=== PATIENT | female | born 1980 | race Caucasian/White ===

== ENCOUNTER 2017-08-31 15:40 | Observation (INO) | payer SELFPAY ==
[2017-08-31] MEDS ORDERED: IPRATROPIUM/ALBUTEROL 0.5-2.5 MG/3 ML AMPUL NEB ONE ×2 (16:11→17:58)
[2017-08-31] MEDS ORDERED: LIDOCAINE 1% INJ-PF (10 MG/ML) 30 ML SDV INJ ONE ×2 (16:11→18:57)
[2017-08-31] MEDS ORDERED: PREDNISONE 20 MG TABLET PO ONE (16:11)
--- NOTE | 2017-08-31 16:13 | ER Document Report ---
ED Medical Screen (RME) - General Chief Complaint: Cold Symptoms Stated Complaint: COUGH CONGESTION Time Seen by Provider: 08/31/17 16:07 Notes: 36-year-old female patient smokes one half packs per day has a nebulizer at home using 5 times a day without relief. Cough and congestion for the past 5 days. Reports dark thick green sputum when it does come up. She does have pulse ox 89% recorded at triage. I have greeted and performed a rapid initial assessment of this patient. A comprehensive ED assessment and evaluation of the patient, analysis of test results and completion of the medical decision making process will be conducted by additional ED providers. TRAVEL OUTSIDE OF THE [place] IN LAST 30 DAYS: No - Related Data Allergies/Adverse Reactions: acetaminophen [From Tylenol] Allergy (Verified 08/31/17 16:01) Past Medical History - Social History Chew tobacco use (# tins/day): No Frequency of alcohol use: Occasional Drug Abuse: None Renal/ Medical History: Denies: Hx Peritoneal Dialysis Physical Exam - Vital signs Vitals: Temp Pulse Resp BP Pulse Ox 99.5 F 117 H 30 H 137/82 H 89 L 08/31/17 15:46 08/31/17 15:46 08/31/17 15:46 08/31/17 15:46 08/31/17 15:46 Course - Vital Signs Vital signs: Temp Pulse Resp BP Pulse Ox 99.5 F 117 H 30 H 137/82 H 89 L 08/31/17 15:46 08/31/17 15:46 08/31/17 15:46 08/31/17 15:46 08/31/17 15:46
--- NOTE | 2017-08-31 16:33 | RADIOLOGY REPORT (SQ) ---
EXAM DESCRIPTION: CHEST PA/LAT COMPLETED DATE/TIME: 08/31/2017 4:23 pm REASON FOR STUDY: Wheezing, cough, congestion, short of breath COMPARISON: None. TECHNIQUE: Frontal and lateral radiographic views of the chest acquired. NUMBER OF VIEWS: Two view. LIMITATIONS: None. FINDINGS: LUNGS AND PLEURA: Lateral view shows some increased density over the lower spine. Likely left lower lobe pneumonia. Lungs otherwise relatively clear. MEDIASTINUM AND HILAR STRUCTURES: No masses or contour abnormalities. HEART AND VASCULAR STRUCTURES: Heart normal size. No evidence for failure. BONES: No acute findings. HARDWARE: None in the chest. OTHER: No other significant finding. IMPRESSION: Suspicious for left lower lobe pneumonia. TECHNICAL DOCUMENTATION: JOB ID: [id number] [employer]- All Rights Reserved
[2017-08-31 17:22] LABS: ABSOLUTE BASOPHILS # (AUTO) 0.1 10^3/uL (0.0-0.2); ABSOLUTE EOSINOPHILS # (AUTO) 0.3 10^3/uL (0.0-0.6); ABSOLUTE LYMPHOCYTES (AUTO) 1.7 10^3/uL (0.5-4.7); ABSOLUTE MONOCYTES (AUTO) 0.5 10^3/uL (0.1-1.4); ABSOLUTE NEUT (AUTO) 5.6 10^3/uL (1.7-8.2); BASOPHILS % (AUTO) 0.7 % (0-2); EOSINOPHILS % (AUTO) 3.9 % (0-6); HEMATOCRIT 43.1 % (36.0-47.0); HEMOGLOBIN 14.9 g/dL (12.0-15.5); LYMPHOCYTES % (AUTO) 20.5 % (13-45); MEAN CORPUSCULAR HEMOGLOBIN 32.2 pg (27.0-33.4); MEAN CORPUSCULAR HGB CONC 34.5 g/dL (32.0-36.0); MEAN CORPUSCULAR VOLUME 93 fl (80-97); MONOCYTES % (AUTO) 6.3 % (3-13); PLATELET COUNT 212 10^3/uL (150-450); RED BLOOD COUNT 4.62 10^6/uL (3.72-5.28); RED CELL DISTRIBUTION WIDTH 13.3 % (11.5-14.0); SEGMENTED NEUTROPHILS % (AUTO) 68.6 % (42-78); TOTAL CELLS COUNTED % (AUTO) 100 %; WHITE BLOOD COUNT 8.2 10^3/uL (4.0-10.5)
[2017-08-31 17:40] LABS: ALANINE AMINOTRANSFERASE 26 U/L (9-52); ALBUMIN 4.7 g/dL (3.5-5.0); ALKALINE PHOSPHATASE 69 U/L (38-126); ANION GAP 15 (5-19); ASPARTATE AMINO TRANSFERASE 22 U/L (14-36); BILIRUBIN,DIRECT 0.3 mg/dL (0.0-0.4); BILIRUBIN,TOTAL 0.5 mg/dL (0.2-1.3); BLOOD UREA NITROGEN 9 mg/dL (7-20); CALCIUM 10.1 mg/dL (8.4-10.2); CARBON DIOXIDE 26 mmol/L (22-30); CHLORIDE 104 mmol/L (98-107); GLUCOSE 94 mg/dL (75-110); POTASSIUM 3.9 mmol/L (3.6-5.0); SODIUM 144.9 mmol/L (137-145); TOTAL PROTEIN 7.8 g/dL (6.3-8.2)
[2017-08-31] MEDS ORDERED: CEFTRIAXONE INJ 1000 MG VIAL IM ONE (18:34)
--- NOTE | 2017-08-31 18:40 | ER Document Report ---
ED Respiratory Problem - General Chief Complaint: Cold Symptoms Stated Complaint: COUGH CONGESTION Time Seen by Provider: 08/31/17 16:07 Notes: Patient says that she has had a cough for about 5 days. She is getting up greenish colored phlegm. Patient uses a home nebulizer, although she has never been told that she formally has asthma. She vomited once yesterday and once the day before and has not had any diarrhea. She has been exposed to her 6-year -old who had a high fever and was positive on the strep test. Patient does smoke cigarettes. TRAVEL OUTSIDE OF THE [place] IN LAST 30 DAYS: No - Related Data Allergies/Adverse Reactions: acetaminophen [From Tylenol] Allergy (Verified 08/31/17 16:01) Past Medical History - Social History Smoking Status: Current Every Day Smoker Chew tobacco use (# tins/day): No Frequency of alcohol use: Occasional Drug Abuse: None Family History: Reviewed & Not Pertinent Patient has suicidal ideation: No Patient has homicidal ideation: No - Past Medical History Cardiac Medical History: Denies: Hx Congestive Heart Failure, Hx Hypertension, Hx Pulmonary Embolism Pulmonary Medical History: Reports: Hx Asthma - Never told that she has asthma, but has home nebulizer prescribed Musculoskeltal Medical History: Reports Other - History of TIA. Review of Systems - Review of Systems Notes: REVIEW OF SYSTEMS: CONSTITUTIONAL : Denies fever. EENT: Denies eye, ear, nose or mouth or throat pain or other symptoms. CARDIOVASCULAR: Denies chest pain. RESPIRATORY: See HPI.. GASTROINTESTINAL: Denies abdominal pain but has had some nausea and vomiting, no diarrhea. GENITOURINARY: Denies difficulty or painful urinating, urinary frequency, blood in urine. MUSCULOSKELETAL: Denies back or neck pain. Denies joint pain or swelling. SKIN: Denies rash or skin lesions. NEUROLOGICAL: Denies LOC or altered mental status. Denies headache. Denies sensory loss or motor deficits. ALL OTHER SYSTEMS REVIEWED AND NEGATIVE. Physical Exam - Vital signs Vitals: Temp Pulse Resp BP Pulse Ox 99.5 F 117 H 30 H 137/82 H 89 L 08/31/17 15:46 08/31/17 15:46 08/31/17 15:46 08/31/17 15:46 08/31/17 15:46 Interpretation: Tachycardic - Mild, Hypoxic, Tachypneic - Mild, Febrile - Low- grade - Notes Notes: PHYSICAL EXAMINATION: GENERAL: Well-appearing, in no acute distress. Vital signs show tachypnea, tachycardia, and hypoxia. HEAD: Atraumatic, normocephalic. EYES: Pupils equal round and reactive to light, extraocular movements intact. ENT: oropharynx clear without exudates. Moist mucous membranes. NECK: Normal range of motion, supple. LUNGS: Breath sounds with diffuse expiratory wheezes bilaterally. HEART: Regular rate and rhythm without murmurs. ABDOMEN: Soft, nontender. No guarding or rebound. No masses. BACK: No tenderness throughout entire back. EXTREMITIES: Normal range of motion without pain. NEUROLOGICAL: Normal speech, normal gait. Normal sensory, motor, and reflex exams. Awake, alert, and oriented x3. Cranial nerves normal. PSYCH: Normal mood, normal affect. SKIN: Warm, dry, no rashes. Course - Re-evaluation Re-evalutation: 08/31/17 18:38 Patient says her breathing feels much better since she has had her second nebulizer treatment. However, patient's O2 sat is moving between 88% and 91% on room air. Plan to give the patient Rocephin, 1 g IM, and see if her O2 sat might stabilize above 90 to provide us to send her home. 08/31/17 19:[address] Kelly, hospitalist on duty at this time and he will admit the patient for observation care. - Vital Signs Vital signs: Temp Pulse Resp BP Pulse Ox 99.5 F 117 H 20 137/82 H 91 L 08/31/17 15:46 08/31/17 15:46 08/31/17 19:00 08/31/17 15:46 08/31/17 17:43 - Laboratory Result Diagrams: 08/31/17 16:45 08/31/17 16:45 Discharge - Discharge Clinical Impression: Pneumonia, Bronchospasm, Hypoxia Condition: Stable Disposition: ADMITTED OBSERVATION Admitting Provider: Hospitalist Unit Admitted: Telemetry
[2017-08-31] MEDS ORDERED: HYDRALAZINE HCL INJ/PF 20 MG/1 ML SDV IV PRN (19:35)
[2017-08-31] MEDS ORDERED: GUAIFENESIN SYRP 200 MG/10 ML UDC PO PRN (19:35)
[2017-08-31] MEDS ORDERED: IPRATROPIUM/ALBUTEROL 0.5-2.5 MG/3 ML AMPUL NEB PRN (19:35)
[2017-08-31] MEDS ORDERED: CHLORPHENIRAMINE MALEATE 4 MG TABLET PO ONE (20:30)
[2017-08-31] MEDS ORDERED: LEVOFLOXACIN 750 MG/D5W RTU 750 MG/150 ML RTUPB IV SCH (21:00)
[2017-08-31] MEDS: IPRATROPIUM/ALBUTEROL 0.5-2.5 MG/3 ML AMPUL NEB SCH (21:02)
[2017-08-31] MEDS ORDERED: HEPARIN SOD (PORCINE) 5,000 UNIT/ML 1 ML SYRINGE SUBCUT SCH (22:00)
[2017-08-31] MEDS: GUAIFENESIN 600 MG TABLET.SA PO SCH (23:14)
[2017-08-31] MEDS: HEPARIN SOD (PORCINE) 5,000 UNIT/ML 1 ML SYRINGE SUBCUT SCH (23:15)
[2017-08-31] MEDS: FLUTICASONE NASAL SPRAY 50 MCG/SPRY 120 SPRAY/16 GM NASL SCH (23:15)
[2017-08-31] MEDS ORDERED: INFLUENZA ADLT QUAD (36MOS+) 2017-18 VAC 0.5 ML SYR IM PRN (23:36)
[2017-09-01] MEDS ORDERED: LANSOPRAZOLE 30 MG TAB.RAP.DR PO ONE (01:00)
--- NOTE | 2017-09-01 01:00 | PDOC H&P ---
History of Present Illness Admission Date/PCP: 08/31/17 19:42 Patient complains of: Shortness of breath and cough History of Present Illness: JAYDEN SIMMONS is a 36 year old female with a past medical history of Tobacco Dependence. Who presents with 5 or 6 days of shortness of breath, productive cough and left-sided pleuritic chest pain. She denies previous episode she admits exposure to her son with strep throat who symptoms began yesterday. Her symptoms have been unresponsive to multiple okej-[id number]-umcxare preparations. She complains of exceptionally poor controlled acid reflux with constant symptoms predating respiratory complaints by several weeks. In the emergency room she is found to have rhonchi and rales with a left lower lobe infiltrate. She started on empiric antibiotics and referred to the hospitalist for admission. She denies recent antibiotic use Past Medical History Cardiac Medical History: Denies: Congestive Heart Failure, Hypertension, Pulmonary Embolism Pulmonary Medical History: Reports: Bronchitis, Chronic Obstructive Pulmonary Disease (COPD) Neurological Medical History: Reports: Seizures - Pt. did not fully know what type or anything. Musculoskeltal Medical History: Reports: Other - History of TIA. Psychiatric Medical History: Reports: Tobacco Dependency Social History Information Source: Patient Lives with: Family Smoking Status: Current Every Day Smoker Drugs: None - Advance Directive Resuscitation Status: Full Code Family History Family History: COPD Parental Family History Reviewed: Yes Children Family History Reviewed: Yes Sibling(s) Family History Reviewed.: Yes Medication/Allergy Home Medications: No Home Medications 08/31/17 Allergies/Adverse Reactions: acetaminophen [From Tylenol] Allergy (Verified 08/31/17 16:01) Review of Systems Constitutional: ABSENT: chills, fever(s), headache(s), weight gain, weight loss Eyes: ABSENT: visual disturbances Ears: ABSENT: hearing changes Cardiovascular: ABSENT: chest pain, dyspnea on exertion, edema, orthropnea, palpitations Respiratory: ABSENT: cough, hemoptysis Gastrointestinal: ABSENT: abdominal pain, constipation, diarrhea, hematemesis, hematochezia, nausea, vomiting Genitourinary: ABSENT: dysuria, hematuria Musculoskeletal: ABSENT: joint swelling Integumentary: ABSENT: rash, wounds Neurological: ABSENT: abnormal gait, abnormal speech, confusion, dizziness, focal weakness, syncope Psychiatric: ABSENT: anxiety, depression, homidical ideation, suicidal ideation Endocrine: ABSENT: cold intolerance, heat intolerance, polydipsia, polyuria Hematologic/Lymphatic: ABSENT: easy bleeding, easy bruising Physical Exam Vital Signs: Temp Pulse Resp BP Pulse Ox 98.5 F 106 H 16 133/60 H 92 08/31/17 23:19 08/31/17 23:19 08/31/17 23:19 08/31/17 23:19 09/01/17 00:00 Intake & Output 08/30/17 08/31/17 09/01/17 11:59 11:59 11:59 Intake Total 120 Output Total 200 Balance -80 Weight 105.5 kg General appearance: PRESENT: cooperative, mild distress, other - Fatigue and toxic appearing Head exam: PRESENT: atraumatic, normocephalic Eye exam: PRESENT: conjunctival injection, conjunctiva pink, EOMI, PERRLA. ABSENT: scleral icterus Ear exam: PRESENT: normal external ear exam Mouth exam: PRESENT: moist, tongue midline Neck exam: ABSENT: carotid bruit, JVD, lymphadenopathy, thyromegaly Respiratory exam: PRESENT: accessory muscle use, crackles, decreased breath sounds, rales, rhonchi, tachypnea Cardiovascular exam: PRESENT: RRR. ABSENT: diastolic murmur, rubs, systolic murmur Pulses: PRESENT: normal dorsalis pedis pul Vascular exam: PRESENT: normal capillary refill GI/Abdominal exam: PRESENT: normal bowel sounds, soft. ABSENT: distended, guarding, mass, organolmegaly, rebound, tenderness Rectal exam: PRESENT: deferred Extremities exam: PRESENT: full ROM. ABSENT: calf tenderness, clubbing, pedal edema Neurological exam: PRESENT: alert, awake, oriented to person, oriented to place , oriented to time, oriented to situation, CN II-XII grossly intact. ABSENT: motor sensory deficit Psychiatric exam: PRESENT: appropriate affect, normal mood. ABSENT: homicidal ideation, suicidal ideation Skin exam: PRESENT: dry, intact, warm. ABSENT: cyanosis, rash Results Impressions: Chest X-Ray 08/31/17 16:11 IMPRESSION: Suspicious for left lower lobe pneumonia. Assessment & Plan - Diagnosis (1) Pneumonia Is this a current diagnosis for this admission?: Yes Plan: Given severely uncontrolled GERD and infiltrate in the right lower lobe concerning for aspiration. Empiric antibiotics initiated, albuterol and Atrovent with incentive spirometry. Follow-up blood culture and CBC (2) Hypoxia Is this a current diagnosis for this admission?: Yes Plan: Supplemental oxygen and BiPAP as needed (3) COPD exacerbation Is this a current diagnosis for this admission?: Yes Plan: Albuterol and Atrovent, prednisone, flutter valve and education (4) Tobacco dependency Is this a current diagnosis for this admission?: Yes Plan: Tobacco Dependence patient received tobacco cessation counseling and offered nicotine replacement options (5) GERD (gastroesophageal reflux disease) Is this a current diagnosis for this admission?: Yes Plan: Prevacid twice daily and education
[2017-09-01] MEDS: IPRATROPIUM/ALBUTEROL 0.5-2.5 MG/3 ML AMPUL NEB SCH ×3 (01:34→14:06)
[2017-09-01] MEDS ORDERED: KETOROLAC TROMETHAMINE INJ/PF 30 MG/1 ML SDV IV ONE (02:45)
[2017-09-01 04:12] VITALS: BP 134/64
[2017-09-01] MEDS: LANSOPRAZOLE 30 MG TAB.RAP.DR PO SCH ×2 (06:02→17:25)
[2017-09-01] MEDS: HEPARIN SOD (PORCINE) 5,000 UNIT/ML 1 ML SYRINGE SUBCUT SCH (06:02)
[2017-09-01 08:06] LABS: ABSOLUTE LYMPHOCYTES (AUTO) 1.7 10^3/uL (0.5-4.7); ABSOLUTE MONOCYTES (AUTO) 0.5 10^3/uL (0.1-1.4); ABSOLUTE NEUT (AUTO) 5.2 10^3/uL (1.7-8.2); BASOPHILS % (AUTO) 0.3 % (0-2); EOSINOPHILS % (AUTO) 0.2 % (0-6); HEMATOCRIT 39.3 % (36.0-47.0); HEMOGLOBIN 13.3 g/dL (12.0-15.5); LYMPHOCYTES % (AUTO) 23.1 % (13-45); MEAN CORPUSCULAR HEMOGLOBIN 31.7 pg (27.0-33.4); MEAN CORPUSCULAR HGB CONC 33.9 g/dL (32.0-36.0); MEAN CORPUSCULAR VOLUME 94 fl (80-97); MONOCYTES % (AUTO) 6.1 % (3-13); PLATELET COUNT 197 10^3/uL (150-450); RED CELL DISTRIBUTION WIDTH 13.3 % (11.5-14.0); SEGMENTED NEUTROPHILS % (AUTO) 70.3 % (42-78); TOTAL CELLS COUNTED % (AUTO) 100 %; WHITE BLOOD COUNT 7.4 10^3/uL (4.0-10.5)
[2017-09-01 08:41] LABS: ANION GAP 13 (5-19); BLOOD UREA NITROGEN 14 mg/dL (7-20); CALCIUM 9.9 mg/dL (8.4-10.2); CARBON DIOXIDE 23 mmol/L (22-30); CHLORIDE 106 mmol/L (98-107); GLUCOSE 100 mg/dL (75-110); POTASSIUM 4.4 mmol/L (3.6-5.0); SODIUM 141.5 mmol/L (137-145)
[2017-09-01] MEDS: GUAIFENESIN 600 MG TABLET.SA PO SCH (09:09)
[2017-09-01] MEDS: FLUTICASONE NASAL SPRAY 50 MCG/SPRY 120 SPRAY/16 GM NASL SCH (09:10)
[2017-09-01] MEDS ORDERED: NICOTINE 14 MG/24 HR PATCH.TD24 TD PRN (13:02)
[2017-09-01] MEDS ORDERED: ALPRAZOLAM 0.25 MG TABLET PO ONE (14:00)
--- NOTE | 2017-09-01 17:10 | PDOC DISCHARGE SUMMARY ---
General - Admit/Disc Date/PCP Admission Date/Primary Care Provider: 08/31/17 19:42 No PCP, patient to establish care as outpatient and see physicician in 1 week Discharge Date: 09/01/17 - Discharge Diagnosis (1) Acute bronchitis Is this a current diagnosis for this admission?: Yes (2) Anxiety Is this a current diagnosis for this admission?: Yes (3) Bronchospasm Is this a current diagnosis for this admission?: Yes (4) COPD exacerbation Is this a current diagnosis for this admission?: Yes (5) Hypoxia Is this a current diagnosis for this admission?: Yes (6) Tobacco dependency Is this a current diagnosis for this admission?: Yes - Additional Information Resuscitation Status: Full Code Prescriptions: Albuterol Sulfate [Ventolin Hfa] 1 - 2 puff IH Q4 PRN #1 hfa.aer.ad PRN Reason: Alprazolam [Xanax 0.25 mg Tablet] 0.25 mg PO TIDP PRN #30 tab PRN Reason: Doxycycline Hyclate 100 mg PO Q12H 5 Days #11 capsule Nicotine [Nicoderm 14 mg/24 Hr Transdermal Patch] 1 each TD DAILYP PRN 90 Days # 90 patch.td24 PRN Reason: Omeprazole Magnesium [Prilosec Otc] 20 mg PO DAILY 30 Days #30 tablet. Prednisone [Deltasone 20 mg Tablet] 40 mg PO DAILY #7 tablet Home Medications: Albuterol Sulfate [Ventolin Hfa] 1 - 2 puff IH Q4 PRN #1 hfa.aer.ad 09/01/17 Alprazolam [Xanax 0.25 mg Tablet] 0.25 mg PO TIDP PRN #30 tab 09/01/17 Doxycycline Hyclate 100 mg PO Q12H 5 Days #11 capsule 09/01/17 Guaifenesin [Mucinex Sr 600 mg Tablet.sa] 1,200 mg PO Q12 tablet.sa 09/01/17 Guaifenesin [Robitussin Syrup 200 mg/10 ml Ud Cup] 200 mg PO Q4HP PRN udc 09/01 Ipratropium/Albuterol Sulfate [Duoneb 3 ml Ampul] 3 ml NEB RTQ6 vial.neb Nicotine [Nicoderm 14 mg/24 Hr Transdermal Patch] 1 each TD DAILYP PRN 90 Days # 90 patch.td24 09/01/17 Omeprazole Magnesium [Prilosec Otc] 20 mg PO DAILY 30 Days #30 tablet. Prednisone [Deltasone 20 mg Tablet] 40 mg PO DAILY #7 tablet 09/01/17 History of Present Illness History of Present Illness: JAYDEN SIMMONS is a 36 year old female with tobacco Dependence and anxiety. She presented to the ER with 5 or 6 days of shortness of breath, productive cough and left-sided pleuritic chest pain. She denied previous episode she admits exposure to her son with strep throat who symptoms began yesterday. Her symptoms had been unresponsive to multiple dcns-rdx-fianiky preparations. She complained of exceptionally poor controlled acid reflux with constant symptoms predating respiratory complaints by several weeks. In the emergency room she is found to have rhonchi and rales with a left lower lobe infiltrate. She started on empiric antibiotics and supplemental oxygen and nebulizer treatments. When I saw her later that day she had a lot of anxiety which improved with Xanax. She has had anxiety for a long time. She also got a nicotine patch and was started on steroids. We ambulated her on room air down the hallway and her sats remained in the 90s. Patient was eager to go home due to 3 young children with no one to care for them. She was discharged. She does not have a primary care physician and is to establish care at the [facility] [place]. She was given prescriptions for Xanax to 5 mg 30 tablets, doxycycline, prednisone, albuterol mdi and nicotine patch Hospital Course Hospital Course: See above Physical Exam Vital Signs: Temp Pulse Resp BP Pulse Ox 98.3 F 87 18 134/64 H 94 09/01/17 04:00 09/01/17 14:06 09/01/17 14:06 09/01/17 04:00 09/01/17 04:00 Intake & Output 08/31/17 09/01/17 09/02/17 06:59 06:59 06:59 Intake Total 270 591 Output Total 200 Balance 70 591 Weight 105.5 kg General appearance: PRESENT: no acute distress Neck exam: ABSENT: tracheal deviation Respiratory exam: PRESENT: prolonged expiratory phas, other - coarse Breath sounds bilateral. ABSENT: crackles Cardiovascular exam: PRESENT: RRR Extremities exam: ABSENT: pedal edema Results Laboratory Results: 09/01/17 06:25 09/01/17 06:25 09/01/17 09/01/17 06:25 06:25 WBC 7.4 RBC 4.20 Hgb 13.3 Hct 39.3 MCV 94 MCH 31.7 MCHC 33.9 RDW 13.3 Plt Count 197 Seg Neutrophils % 70.3 Lymphocytes % 23.1 Monocytes % 6.1 Eosinophils % 0.2 Basophils % 0.3 Absolute Neutrophils 5.2 Absolute Lymphocytes 1.7 Absolute Monocytes 0.5 Absolute Eosinophils 0.0 Absolute Basophils 0.0 Sodium 141.5 Potassium 4.4 Chloride 106 Carbon Dioxide 23 Anion Gap 13 BUN 14 Creatinine 0.73 Est GFR ( Amer) > 60 Est GFR (Non-Af Amer) > 60 Glucose 100 Calcium 9.9 Impressions: Chest X-Ray 08/31/17 16:11 IMPRESSION: Suspicious for left lower lobe pneumonia. Qualifiers - * PATEINT BEING DISCHARGED WITH ANY OF THE FOLLOWING DIAGNOSIS?: No Plan Time Spent: Less than 30 Minutes
[2017-09-01] MEDS ORDERED: METHYLPREDNISOLONE INJ 125 MG/2 ML SDV IV ONE (17:45)
== END 2017-09-01 18:15 | disposition home or self-care (01) ==
LOC: ER 15:40 → EH 19:42 → 5 21:43
PROVIDERS: ADMIT Internal Medicine; ATTEND Internal Medicine
DX: J44.0 Chronic obstructive pulmonary disease with (acute) lower respiratory infection (principal); J20.9 Acute bronchitis, unspecified; J44.1 Chronic obstructive pulmonary disease with (acute) exacerbation; R09.02 Hypoxemia; F41.9 Anxiety disorder, unspecified; F17.210 Nicotine dependence, cigarettes, uncomplicated; K21.9 Gastro-esophageal reflux disease without esophagitis; Z20.828 Contact with and (suspected) exposure to other viral communicable diseases; Z86.73 Personal history of transient ischemic attack (TIA), and cerebral infarction without residual deficits; Z82.5 Family history of asthma and other chronic lower respiratory diseases
CPT/HCPCS: 94640 ×5; 99284; 96372; 96365; 36415 ×2; 87070; 87205; 85025 ×2; 80048; 80053; 71046; 94799 ×2; 94660; 94667; G0378 ×3; J1644; J3490 ×2; J2930; J1885; J7512; J0696; J1956; J7620 ×2

== ENCOUNTER 2017-09-30 09:55 | Emergency (ER) | payer SELFPAY ==
--- NOTE | 2017-09-30 10:16 | ER Document Report ---
ED Medical Screen (RME) - General Chief Complaint: Weakness Stated Complaint: COUGH Time Seen by Provider: 09/30/17 10:10 Mode of Arrival: Ambulatory Information source: Patient Notes: 37-year-old woman who was referred from the [facility] for left- sided pain numbness, weakness. Patient also states she had a facial droop. Her symptoms all began yesterday at about 7 PM. She does state she was having pain and numbness for the past 3 days, but started having weakness that she noticed at about 7 PM yesterday. The patient is a 1-1/2 pack per day smoker and she does have a history of TIA in the past. TRAVEL OUTSIDE OF THE [place] IN LAST 30 DAYS: No - Related Data Allergies/Adverse Reactions: acetaminophen [From Tylenol] Allergy (Verified 09/30/17 09:56) Past Medical History - Past Medical History Cardiac Medical History: Denies: Hx Congestive Heart Failure, Hx Hypertension, Hx Pulmonary Embolism Pulmonary Medical History: Reports: Hx Asthma - Not ever told that, Hx Bronchitis, Hx COPD Neurological Medical History: Reports: Hx Seizures - Pt. did not fully know what type or anything. Renal/ Medical History: Denies: Hx Peritoneal Dialysis - Immunizations History of Influenza Vaccine for 05/2017 - 10/2017 Season: No Physical Exam - Vital signs Vitals: Temp Pulse Resp BP Pulse Ox 98.0 F 78 18 110/77 97 09/30/17 10:09/30/17 10:09/30/17 10:09/30/17 10:09/30/17 10:09 Course - Vital Signs Vital signs: Temp Pulse Resp BP Pulse Ox 98.0 F 78 18 110/77 97 09/30/17 10:09/30/17 10:09/30/17 10:09/30/17 10:09/30/17 10:09
--- NOTE | 2017-09-30 10:43 | RADIOLOGY REPORT (SQ) ---
EXAM DESCRIPTION: CHEST PA/LAT COMPLETED DATE/TIME: 09/30/2017 10:32 am REASON FOR STUDY: left weak COMPARISON: 08/31/2017 EXAM PARAMETERS: NUMBER OF VIEWS: two views TECHNIQUE: Digital Frontal and Lateral radiographic views of the chest acquired. RADIATION DOSE: NA LIMITATIONS: none FINDINGS: LUNGS AND PLEURA: No opacities, masses or pneumothorax. No pleural effusion. MEDIASTINUM AND HILAR STRUCTURES: No masses or contour abnormalities. HEART AND VASCULAR STRUCTURES: Heart normal size. No evidence for failure. BONES: No acute findings. HARDWARE: None in the chest. OTHER: No other significant finding. IMPRESSION: NO SIGNIFICANT RADIOGRAPHIC FINDING IN THE CHEST. TECHNICAL DOCUMENTATION: JOB ID: [id number] [employer]- All Rights Reserved
--- NOTE | 2017-09-30 10:51 | RADIOLOGY REPORT (SQ) ---
EXAM DESCRIPTION: CT HEAD WITHOUT COMPLETED DATE/TIME: 09/30/2017 10:42 am REASON FOR STUDY: left weak COMPARISON: None. TECHNIQUE: Axial images acquired through the brain without intravenous contrast. Images reviewed wi th bone, brain and subdural windows. Images stored on PACS. All CT scanners at this facility use dose modulation, iterative reconstruction, and/or weight based d osing when appropriate to reduce radiation dose to as low as reasonably achievable (ALARA). [facility]: Dose Right [facility]: CareDose [facility]: Dose Right [facility]: Teradose 4D [facility]: [email or web address] RADIATION DOSE: 64.61 mGy. LIMITATIONS: None. FINDINGS: VENTRICLES: Normal size and contour. CEREBRUM: No masses. No hemorrhage. No midline shift. No evidence for acute infarction. Normal gra y/white matter differentiation. No areas of low density in the white matter. CEREBELLUM: No masses. No hemorrhage. No alteration of density. No evidence for acute infarction. EXTRAAXIAL SPACES: No fluid collections. No masses. ORBITS AND GLOBE: No intra- or extraconal masses. Normal contour of globe without masses. CALVARIUM: No fracture. PARANASAL SINUSES: No fluid or mucosal thickening. SOFT TISSUES: No mass or hematoma. OTHER: No other significant finding. IMPRESSION: NORMAL BRAIN CT WITHOUT CONTRAST. EVIDENCE OF ACUTE STROKE: NO. COMMENT: Quality ID # [id number]: Final reports with documentation of one or more dose reduction techniques (e.g., Automated exposure control, adjustment of the mA and/or kV according to patient size, use of iterative reconstruction technique) TECHNICAL DOCUMENTATION: JOB ID: [id number] [employer]- All Rights Reserved
--- NOTE | 2017-09-30 10:59 | EKG REPORT ---
SEVERITY:- NORMAL ECG - SINUS RHYTHM : Confirmed by: Clau Major 30-Sep-2017 10:58:24
[2017-09-30 11:40] LABS: ABSOLUTE EOSINOPHILS # (AUTO) 0.2 10^3/uL (0.0-0.6); ABSOLUTE LYMPHOCYTES (AUTO) 2.2 10^3/uL (0.5-4.7); ABSOLUTE MONOCYTES (AUTO) 0.3 10^3/uL (0.1-1.4); ABSOLUTE NEUT (AUTO) 3.6 10^3/uL (1.7-8.2); BASOPHILS % (AUTO) 0.7 % (0-2); HEMATOCRIT 44.1 % (36.0-47.0); HEMOGLOBIN 15.3 g/dL (12.0-15.5); LYMPHOCYTES % (AUTO) 34.5 % (13-45); MEAN CORPUSCULAR HEMOGLOBIN 32.2 pg (27.0-33.4); MEAN CORPUSCULAR HGB CONC 34.7 g/dL (32.0-36.0); MEAN CORPUSCULAR VOLUME 93 fl (80-97); MONOCYTES % (AUTO) 4.9 % (3-13); PLATELET COUNT 194 10^3/uL (150-450); RED BLOOD COUNT 4.76 10^6/uL (3.72-5.28); RED CELL DISTRIBUTION WIDTH 13.4 % (11.5-14.0); SEGMENTED NEUTROPHILS % (AUTO) 56.9 % (42-78); TOTAL CELLS COUNTED % (AUTO) 100 %; WHITE BLOOD COUNT 6.4 10^3/uL (4.0-10.5)
[2017-09-30 11:47] LABS: APPEARANCE,URINE CLEAR; BILIRUBIN,URINE NEGATIVE (NEGATIVE); COLOR,URINE STRAW; GLUCOSE, URINE NEGATIVE (NEGATIVE); KETONES,URINE NEGATIVE (NEGATIVE); LEUKOCYTE ESTERASE,URINE NEGATIVE (NEGATIVE); NITRITE,URINE NEGATIVE (NEGATIVE); PROTEIN,URINE NEGATIVE (NEGATIVE); URINE SPECIFIC GRAVITY 1.006; UROBILINOGEN,URINE NEGATIVE mg/dL (<2.0)
[2017-09-30 11:49] LABS: INTERNATIONAL RATION (INR) 0.92
[2017-09-30 12:04] LABS: ALANINE AMINOTRANSFERASE 25 U/L (9-52); ALBUMIN 4.7 g/dL (3.5-5.0); ALKALINE PHOSPHATASE 64 U/L (38-126); ANION GAP 11 (5-19); ASPARTATE AMINO TRANSFERASE 16 U/L (14-36); BILIRUBIN,DIRECT 0.2 mg/dL (0.0-0.4); BILIRUBIN,TOTAL 0.4 mg/dL (0.2-1.3); BLOOD UREA NITROGEN 8 mg/dL (7-20); CALCIUM 10.1 mg/dL (8.4-10.2); CARBON DIOXIDE 23 mmol/L (22-30); CHLORIDE 108 mmol/L (98-107); GLUCOSE 86 mg/dL (75-110); POTASSIUM 4.3 mmol/L (3.6-5.0); TOTAL PROTEIN 7.3 g/dL (6.3-8.2)
--- NOTE | 2017-09-30 12:37 | ER Document Report ---
ED Dizziness/Weakness - General Chief Complaint: Weakness Stated Complaint: COUGH Time Seen by Provider: 09/30/17 10:10 Mode of Arrival: Ambulatory Information source: Patient Notes: Patient is a 37-year-old female who presents to the ER today for 3 days of numbness to both hands that worsened last night with some numbness and tingling with associated pain radiating from her left hand up her left arm and then shooting down her left side of her body to her left leg. Patient denies any facial droop, headache, blurred vision. She has a history of a TIA 4 years ago that she was admitted for but no stroke. She denies any hypertension, diabetes , high cholesterol, history of heart attack. She states strokes run in her family as well as multiple sclerosis. She has never been evaluated for multiple sclerosis by doctor. She states "I have all the signs of MS." she denies any loss of bladder or bowel function. TRAVEL OUTSIDE OF THE [place] IN LAST 30 DAYS: No - Related Data Allergies/Adverse Reactions: acetaminophen [From Tylenol] Allergy (Verified 09/30/17 09:56) Past Medical History - General Information source: Patient - Social History Smoking Status: Current Every Day Smoker Chew tobacco use (# tins/day): No Frequency of alcohol use: None Drug Abuse: None Family History: COPD Patient has suicidal ideation: No Patient has homicidal ideation: No - Past Medical History Cardiac Medical History: Denies: Hx Congestive Heart Failure, Hx Hypertension, Hx Pulmonary Embolism Pulmonary Medical History: Reports: Hx Asthma - Not ever told that, Hx Bronchitis, Hx COPD Neurological Medical History: Reports: Hx Seizures - Pt. did not fully know what type or anything. Renal/ Medical History: Denies: Hx Peritoneal Dialysis Review of Systems - Review of Systems Constitutional: No symptoms reported EENT: No symptoms reported Cardiovascular: No symptoms reported Respiratory: No symptoms reported Gastrointestinal: No symptoms reported Genitourinary: No symptoms reported Female Genitourinary: No symptoms reported Musculoskeletal: No symptoms reported Skin: No symptoms reported Hematologic/Lymphatic: No symptoms reported Neurological/Psychological: See HPI Physical Exam - Vital signs Vitals: Temp Pulse Resp BP Pulse Ox 98.0 F 78 18 110/77 97 09/30/17 10:09/30/17 10:09/30/17 10:09/30/17 10:09/30/17 10:09 - Notes Notes: PHYSICAL EXAMINATION: GENERAL: Well-appearing and in no acute distress. HEAD: Atraumatic, normocephalic. EYES: Pupils equal round and reactive to light, extraocular movements intact, sclera anicteric, conjunctiva are normal. ENT: ear canals without erythema or foreign body, TMs pearly pollock with good bony landmarks, nares patent, oropharynx clear without exudates. Moist mucous membranes. NECK: Normal range of motion, supple without lymphadenopathy LUNGS: CTAB and equal. No wheezes rales or rhonchi. HEART: Regular rate and rhythm without murmurs ABDOMEN: Soft, no tenderness. No guarding, no rebound BACK: no vertebral tenderness, normal ROM GI/: no CVA tenderness EXTREMITIES: Normal range of motion, no pitting edema. No cyanosis. NEUROLOGICAL: Cranial nerves grossly intact. Normal sensory/motor exams. Good and equal strength bilaterally, Kernig and Brudzinski's signs negative, Romberg' s test normal, normal heel to hogue testing PSYCH: Normal mood, normal affect. SKIN: Warm, Dry, normal turgor, no rashes or lesions noted Course - Re-evaluation Re-evalutation: 09/30/17 12:41 Lab work is unremarkable including a normal CAT scan of the head and chest x- ray. Patient was recently admitted for pneumonia last month and she was very concerned that she may have pneumonia still although she states her symptoms are improved. This was ordered in triage. She did not mention any of this to me. Patient cardiac enzymes are normal, EKG reports a normal sinus rhythm without evidence of ischemia or abnormality. I do not believe patient is having a TIA today as she has a normal neurological exam and has had bilateral symptoms. Patient will be given a neurologist to follow-up with for possible MS testing that is not emergent today. - Vital Signs Vital signs: Temp Pulse Resp BP Pulse Ox 98.0 F 78 18 110/77 97 09/30/17 10:09 09/30/17 10:09 09/30/17 10:09 09/30/17 10:09/30/17 10:09 - Laboratory Result Diagrams: 09/30/17 11:17 09/30/17 11:17 Laboratory results interpreted by me: 09/30/17 11:17 Chloride 108 H Discharge - Discharge Clinical Impression: Numbness and tingling in both hands, Numbness and tingling of left leg Condition: Stable Disposition: HOME, SELF-CARE Additional Instructions: Return immediately for any new or worsening symptoms. Follow up with primary care provider, call tomorrow to make followup appointment. Referrals: EYAL WILSON MD [ACTIVE STAFF] - Follow up as needed
[2017-09-30] MEDS ORDERED: HYDROXYZINE PAMOATE 25 MG CAPSULE (4 CAP/ER DISP) PO PRN (12:45)
[2017-09-30 13:20] VITALS: BP 102/76
== END 2017-09-30 13:16 | disposition home or self-care (01) ==
LOC: ER 09:55
DX: R20.0 Anesthesia of skin (principal); M79.642 Pain in left hand; M79.602 Pain in left arm; M79.605 Pain in left leg; R53.1 Weakness; R05 Cough; F17.200 Nicotine dependence, unspecified, uncomplicated
CPT/HCPCS: 93005; 99285; 36415; 84702; 85025; 85610; 80053; 81001; 71046; 70450; 93010; J3490

== ENCOUNTER → 2017-12-01 | Outpatient (CLI) | payer MEDICAID ==
--- NOTE | 2017-12-01 13:53 | RADIOLOGY REPORT (SQ) ---
EXAM DESCRIPTION: CHEST 2 VIEWS COMPLETED DATE/TIME: 12/01/2017 1:32 pm REASON FOR STUDY: MILD INTERMITTENT ASTHMA WITH (ACUTE) EXACERBATION (J45.21) COMPARISON: 09/30/2017. EXAM PARAMETERS: NUMBER OF VIEWS: two views TECHNIQUE: Digital Frontal and Lateral radiographic views of the chest acquired. RADIATION DOSE: NA LIMITATIONS: none FINDINGS: LUNGS AND PLEURA: No opacities, masses or pneumothorax. No pleural effusion. MEDIASTINUM AND HILAR STRUCTURES: No masses or contour abnormalities. HEART AND VASCULAR STRUCTURES: Heart normal size. No evidence for failure. BONES: No acute findings. HARDWARE: None in the chest. OTHER: No other significant finding. IMPRESSION: NO ACUTE RADIOGRAPHIC FINDING IN THE CHEST. TECHNICAL DOCUMENTATION: JOB ID: [id number] [employer]- All Rights Reserved Reading location - IP/workstation name: [email or web address]
--- NOTE | 2017-12-01 13:53 | RADIOLOGY REPORT (SQ) ---
EXAM DESCRIPTION: CERV SP 4 OR 5 VIEWS COMPLETED DATE/TIME: 12/01/2017 1:32 pm REASON FOR STUDY: NECK PAIN (M54.2) J45.21 MILD INTERMITTENT ASTHMA WITH (ACUTE) EXACERBATION M54.2 CERVICALGIA COMPARISON: None. NUMBER OF VIEWS: Five views. TECHNIQUE: AP, lateral, obliques and odontoid radiographic images acquired of the cervical spine. LIMITATIONS: None. FINDINGS: MINERALIZATION: Normal. ALIGNMENT: Anatomic. VERTEBRAE: Vertebral bodies of normal height. DISCS: No significant osteophytes or sclerosis. Disc height maintained. FORAMINA: No osteophytes or foraminal narrowing. LATERAL AND POSTERIOR ELEMENTS: Facets, lateral masses and spinous processes without significant find ings. HARDWARE: None in the spine. SOFT TISSUES: No masses or calcifications. Lung apices clear. OTHER: No other significant finding. IMPRESSION: NO SIGNIFICANT RADIOGRAPHIC FINDING IN THE CERVICAL SPINE. TECHNICAL DOCUMENTATION: JOB ID: [id number] [employer]- All Rights Reserved Reading location - IP/workstation name: [email or web address]
== END ==
LOC: RAD 12:53
PROVIDERS: ATTEND Physician Assistant
DX: J45.21 Mild intermittent asthma with (acute) exacerbation (principal); M54.2 Cervicalgia
CPT/HCPCS: 71046; 72050

== ENCOUNTER 2017-12-20 09:10 | Day surgery (SDC) | payer MEDICAID ==
[~2017-12-20 09:10] MED LIST: DIPHENHYDRAMINE HCL 50 MG/ML VIAL ONE; EPINEPHRINE INJ 1 MG/10 ML DISP.SYRIN ONE; FLUMAZENIL INJ 0.5 MG/5 ML VIAL ONE; GLUCAGON,HUMAN RECOMB 1 MG INJ ONE; MIDAZOLAM 2 MG/2 ML INJ ONE; NALOXONE HCL INJ/PF 0.4 MG/1 ML SDV ONE; ONDANSETRON HCL INJ/PF 4 MG/2 ML SDV ONE
[2017-12-20] MEDS: MIDAZOLAM 2 MG/2 ML INJ ONE ×2 (09:30→09:37)
[2017-12-20] MEDS: FENTANYL CITRATE INJ/PF 100 MCG/2 ML AMPUL ONE ×2 (09:32→09:35)
[2017-12-20] MEDS ORDERED: PROPOFOL INJ 200 MG/20 ML VIAL IV ONE (11:21)
--- NOTE | 2017-12-20 11:50 | Operative Report ---
Operative Report DATE OF SURGERY: 12/20/17 Operative Report: The risks benefits and alternatives of the procedure explained to the patient in detail and informed consent is obtained.A GIF Olympus video scope was inserted into the patient's mouth and hypopharynx, the esophagus is identified intubated and insufflated, the scope was then advanced through the esophagus stomach and duodenum, retroflexion maneuver is done, the esophagus stomach and first and second portions of the duodenum examined PREOPERATIVE DIAGNOSIS: Dysphagia POSTOPERATIVE DIAGNOSIS: Schatzki's ring status post breakage. Sliding hiatal hernia. Gastritis status post biopsy. Duodenitis OPERATION: EGD with biopsy SURGEON: MARCI DYER ANESTHESIA: Moderate Sedation - Initial attempt at conscious sedation was unsuccessful. Patient was provided with 4 mg of Versed and 1000 mcg of fentanyl. She proceeded with propofol sedation. TISSUE REMOVED OR ALTERED: As noted above. COMPLICATIONS: None. ESTIMATED BLOOD LOSS: None. INTRAOPERATIVE FINDINGS: As noted above. PROCEDURE: Patient tolerated the procedure well. No immediate postprocedure complications are noted. Patient discharged in good condition. Discharge date 12/20/2017. Discharge diet: Regular. Discharge activity: Regular. 2-3 week follow-up to discuss findings. Patient is instructed to call the office or proceed to the emergency room should there be any further problems or questions.
[2017-12-20 12:46] VITALS: BP 96/65
== END 2017-12-20 12:50 | disposition home or self-care (01) ==
LOC: END 09:10
PROVIDERS: ATTEND Internal Medicine Gastroenterology
DX: K22.2 Esophageal obstruction (principal); K29.50 Unspecified chronic gastritis without bleeding; K29.80 Duodenitis without bleeding; K21.9 Gastro-esophageal reflux disease without esophagitis; J45.909 Unspecified asthma, uncomplicated; F17.210 Nicotine dependence, cigarettes, uncomplicated; Z79.51 Long term (current) use of inhaled steroids; Z79.899 Other long term (current) drug therapy; Z86.73 Personal history of transient ischemic attack (TIA), and cerebral infarction without residual deficits
CPT/HCPCS: 43239; 88305 ×2; J2250; J3010; J2704; 731; J0171; J1200; J1610; J2310; J2405; J3490

== ENCOUNTER 2017-12-21 19:00 | Emergency (ER) | payer MEDICAID ==
[2017-12-21] MEDS ORDERED: METOCLOPRAMIDE HCL ORAL SOLN 10 MG/10 ML UDCUP PO ONE (19:42)
[2017-12-21] MEDS ORDERED: LIDOCAINE 2% VISCOUS SOLN 20 ML UDCUP PO ONE ×2 (19:42→21:53)
[2017-12-21] MEDS ORDERED: MAG HYDROX/AL HYDROX/SIMETH SUSP 30 ML UDCUP PO ONE ×2 (19:42→21:53)
--- NOTE | 2017-12-21 19:43 | ER Document Report ---
ED Medical Screen (RME) - General Chief Complaint: Shortness Of Breath Stated Complaint: DIFFICULTY BREATHING Time Seen by Provider: 12/21/17 19:42 TRAVEL OUTSIDE OF THE [place] IN LAST 30 DAYS: No - HPI Notes: 12/21/17 19:43 Chest pain abdominal pain after having upper GI scope yesterday. Upper GI performed by Dr. Bravo - Related Data Allergies/Adverse Reactions: acetaminophen [From Tylenol] Allergy (Verified 12/20/17 09:11) Past Medical History - Social History Chew tobacco use (# tins/day): No Frequency of alcohol use: None Drug Abuse: None - Past Medical History Cardiac Medical History: Denies: Hx Congestive Heart Failure, Hx Coronary Artery Disease, Hx Heart Attack, Hx Hypertension, Hx Pulmonary Embolism Pulmonary Medical History: Reports: Hx Asthma, Hx Bronchitis, Hx COPD - ACUTE, Hx Pneumonia Neurological Medical History: Reports: Hx Seizures - POSSIBLE - NO MEDS. Denies : Hx Cerebrovascular Accident Renal/ Medical History: Denies: Hx Peritoneal Dialysis Musculoskeltal Medical History: Denies Hx Arthritis - Immunizations Hx Diphtheria, Pertussis, Tetanus Vaccination: Yes History of Influenza Vaccine for 05/2017 - 10/2017 Season: No Review of Systems - Review of Systems Cardiovascular: Chest pain Respiratory: Short of breath Physical Exam - Vital signs Vitals: Temp Pulse Resp BP Pulse Ox 98.8 F 92 20 146/90 H 97 12/21/17 19:08 12/21/17 19:08 12/21/17 19:08 12/21/17 19:08 12/21/17 19:08 - HEENT Head: Normocephalic Eyes: Normal Conjunctiva: Normal Cornea: Normal Course - Vital Signs Vital signs: Temp Pulse Resp BP Pulse Ox 98.8 F 92 20 146/90 H 97 12/21/17 19:08 12/21/17 19:08 12/21/17 19:08 12/21/17 19:08 12/21/17 19:08
--- NOTE | 2017-12-21 20:41 | ER Document Report ---
ED General - General Mode of Arrival: Ambulatory Information source: Patient TRAVEL OUTSIDE OF THE [place] IN LAST 30 DAYS: No <FRANCES HEAD - Last Filed: 12/21/17 21:52> <KURTIS LEE - Last Filed: 12/21/17 22:44> - General Chief Complaint: Shortness Of Breath Stated Complaint: DIFFICULTY BREATHING Time Seen by Provider: 12/21/17 19:42 Notes: Patient is a 37 year old female presenting to the emergency department complaining of several symptoms including sharp chest pain, and abdominal pain onset last night as well as shortness of breath, dizziness, nausea, anxiety, confusion and weakness onset this morning. Patient states that she had an EGD performed by Dr. Bravo yesterday and was found to have gastritis. She states that yesterday evening she began to have sharp chest pain and epigastric abdominal pain which she describes as burning. (FRANCES HEAD) - Related Data Allergies/Adverse Reactions: acetaminophen [From Tylenol] Allergy (Verified 12/20/17 09:11) Past Medical History - General Information source: Patient - Social History Smoking Status: Current Every Day Smoker Chew tobacco use (# tins/day): No Frequency of alcohol use: None Drug Abuse: None Family History: COPD Patient has suicidal ideation: No Patient has homicidal ideation: No Pulmonary Medical History: Reports: Hx Asthma, Hx Bronchitis, Hx COPD - ACUTE, Hx Pneumonia Neurological Medical History: Reports: Hx Seizures - POSSIBLE - NO MEDS - Immunizations Hx Diphtheria, Pertussis, Tetanus Vaccination: Yes Hx Pneumococcal Vaccination: 09/15/17 <FRANCES HEAD - Last Filed: 12/21/17 21:52> Review of Systems - Review of Systems Constitutional: See HPI, Weakness EENT: No symptoms reported Cardiovascular: See HPI, Chest pain, Dizziness Respiratory: See HPI, Short of breath Gastrointestinal: See HPI, Abdominal pain, Nausea Genitourinary: No symptoms reported Female Genitourinary: No symptoms reported Musculoskeletal: No symptoms reported Skin: No symptoms reported Hematologic/Lymphatic: No symptoms reported Neurological/Psychological: See HPI, Confusion -: Yes All other systems reviewed and negative <FRANCES HEAD - Last Filed: 12/21/17 21:52> Physical Exam - General General appearance: Appears well, Alert In distress: None - HEENT Head: Normocephalic, Atraumatic Eyes: Normal Conjunctiva: Normal Extraocular movements intact: Yes Pupils: PERRL Mucous membranes: Moist Neck: Normal - Respiratory Respiratory status: No respiratory distress Chest status: Nontender Breath sounds: Rhonchi, Other - coarse breath sounds bilaterally Chest palpation: Normal - Cardiovascular Rhythm: Regular Heart sounds: Normal auscultation Murmur: No Friction rub: No Gallop: None auscultated - Abdominal Inspection: Obese Distension: No distension Bowel sounds: Normal Tenderness: Nontender Organomegaly: No organomegaly - Back Back: Normal - Extremities General upper extremity: Normal inspection General lower extremity: Normal inspection - Neurological Neuro grossly intact: Yes Cognition: Normal Orientation: AAOx4 Janet Coma Scale Eye Opening: Spontaneous Janet Coma Scale Verbal: Oriented [place] Coma Scale Motor: Obeys Commands Janet Coma Scale Total: 15 Speech: Normal - Psychological Associated symptoms: Normal affect, Normal mood - Skin Skin Temperature: Warm Skin Moisture: Dry Skin Color: Normal <FRANCES HEAD - Last Filed: 12/21/17 21:52> - Vital signs Vitals: Temp Pulse Resp BP Pulse Ox 98.8 F 92 20 146/90 H 97 12/21/17 19:08 12/21/17 19:08 12/21/17 19:08 12/21/17 19:08 12/21/17 19:08 Course - Laboratory Result Diagrams: 12/21/17 21:00 12/21/17 21:00 <FRANCES HEAD - Last Filed: 12/21/17 21:52> - Laboratory Result Diagrams: 12/21/17 21:00 12/21/17 21:00 - Diagnostic Test Radiology reviewed: Image reviewed, Reports reviewed - Acute abdominal series is unremarkable <KURTIS LEE - Last Filed: 12/21/17 22:44> - Re-evaluation Re-evalutation: 12/21/17 22:42 Patient reports a second GI cocktail did relieve her epigastric burning sensation. Chem-12, cardiac enzymes, LFTs, lipase, and CBC are all unremarkable. (KURTIS LEE) - Vital Signs Vital signs: Temp Pulse Resp BP Pulse Ox 98.8 F 92 20 146/90 H 97 12/21/17 19:08 12/21/17 19:08 12/21/17 19:08 12/21/17 19:08 12/21/17 19:08 - Laboratory Laboratory results interpreted by me: 12/21/17 21:00 AST 13 L Discharge <FRANCES HEAD - Last Filed: 12/21/17 21:52> <KURTIS LEE - Last Filed: 12/21/17 22:44> - Discharge Clinical Impression: Gastritis and duodenitis Condition: Stable Disposition: HOME, SELF-CARE Additional Instructions: Gastritis You have an inflammation of the stomach called gastritis. This commonly causes upper abdominal pain, nausea, and vomiting. In severe cases, bleeding of the stomach lining can occur. Gastritis can be caused by bacteria or viruses , alcohol, or stomach-irritating drugs. Begin with sips of clear liquids. Take increasing amounts of fluid over the first 24 hours. Then start small amounts of bland foods (such as dry toast , applesauce, mashed potato). Gradually resume your usual diet. You should take antacids every two hours until the pain has subsided. Acid -suppressing drugs may be prescribed as well. Avoid aspirin, caffeine, tobacco , and alcohol. If the abdominal pain worsens, or there is evidence of major bleeding in the stomach (such as black, tarry stool, bloody or black vomit, or lightheadedness), you should return immediately. Call the doctor if you aren't improved in 24 to 36 hours. Take antacids throughout the day and at bedtime. Eat a very bland diet. Follow-up with your primary care provider or your scientific editor if not improving. Referrals: ANTONINA SIM PA-C [Primary Care Provider] - Follow up as needed Scribe Attestation: 12/21/17 22:44 I personally performed the services described in the documentation, reviewed and edited the documentation which was dictated to the scribe in my presence, and it accurately records my words and actions. (ROSA,KURTIS) Scribe Documentation - Scribe Written by Denice:: Denice Dwyer, 12/21/2017 20:44 acting as scribe for :: Rosa <FRANCES HEAD - Last Filed: 12/21/17 21:52>
[2017-12-21 21:12] LABS: ABSOLUTE BASOPHILS # (AUTO) 0.1 10^3/uL (0.0-0.2); ABSOLUTE EOSINOPHILS # (AUTO) 0.2 10^3/uL (0.0-0.6); ABSOLUTE LYMPHOCYTES (AUTO) 2.3 10^3/uL (0.5-4.7); ABSOLUTE MONOCYTES (AUTO) 0.4 10^3/uL (0.1-1.4); ABSOLUTE NEUT (AUTO) 4.9 10^3/uL (1.7-8.2); BASOPHILS % (AUTO) 0.8 % (0-2); EOSINOPHILS % (AUTO) 2.2 % (0-6); HEMATOCRIT 43.8 % (36.0-47.0); HEMOGLOBIN 15.1 g/dL (12.0-15.5); LYMPHOCYTES % (AUTO) 29.6 % (13-45); MEAN CORPUSCULAR HEMOGLOBIN 31.8 pg (27.0-33.4); MEAN CORPUSCULAR HGB CONC 34.4 g/dL (32.0-36.0); MEAN CORPUSCULAR VOLUME 93 fl (80-97); MONOCYTES % (AUTO) 4.8 % (3-13); PLATELET COUNT 153 10^3/uL (150-450); RED BLOOD COUNT 4.73 10^6/uL (3.72-5.28); RED CELL DISTRIBUTION WIDTH 12.9 % (11.5-14.0); SEGMENTED NEUTROPHILS % (AUTO) 62.6 % (42-78); TOTAL CELLS COUNTED % (AUTO) 100 %; WHITE BLOOD COUNT 7.8 10^3/uL (4.0-10.5)
--- NOTE | 2017-12-21 21:12 | RADIOLOGY REPORT (SQ) ---
EXAM DESCRIPTION: ACUTE ABDOMEN SERIES COMPLETED DATE/TIME: 12/21/2017 8:47 pm REASON FOR STUDY: cp abd pain after upper gi COMPARISON: None. NUMBER OF VIEWS: Three views. TECHNIQUE: Frontal chest, supine abdomen and upright/ abdomen radiographic images acquired. LIMITATIONS: None. FINDINGS: CHEST: Lungs clear of infiltrates. FREE AIR: None. No abnormal gas collections. BOWEL GAS PATTERN: Nonobstructive pattern. No dilated loops or air fluid levels. CALCIFICATIONS: No suspicious calcifications. HARDWARE: None in the abdomen. SOFT TISSUES: No gross mass or suggestion of organomegaly. BONES: No acute fracture. No worrisome bone lesions. OTHER: No other significant finding. IMPRESSION: NO RADIOGRAPHIC EVIDENCE FOR ACUTE ABDOMINAL DISEASE. TECHNICAL DOCUMENTATION: JOB ID: [id number] [employer]- All Rights Reserved Reading location - IP/workstation name: [email or web address]
[2017-12-21 21:30] LABS: ALANINE AMINOTRANSFERASE 28 U/L (9-52); ALBUMIN 4.4 g/dL (3.5-5.0); ALKALINE PHOSPHATASE 62 U/L (38-126); ANION GAP 15 (5-19); ASPARTATE AMINO TRANSFERASE 13 U/L (14-36); BILIRUBIN,DIRECT 0.3 mg/dL (0.0-0.4); BILIRUBIN,TOTAL 0.5 mg/dL (0.2-1.3); BLOOD UREA NITROGEN 8 mg/dL (7-20); CALCIUM 9.9 mg/dL (8.4-10.2); CARBON DIOXIDE 23 mmol/L (22-30); CHLORIDE 106 mmol/L (98-107); CREATINE KINASE 59 U/L (30-135); GLUCOSE 93 mg/dL (75-110); LIPASE 127.3 U/L (23-300); POTASSIUM 4.1 mmol/L (3.6-5.0); SODIUM 143.7 mmol/L (137-145); TOTAL PROTEIN 7.4 g/dL (6.3-8.2)
[2017-12-21 21:43] LABS: CREATINE KINASE MB < 0.22 ng/mL (<4.55); TROPONIN I < 0.012 ng/mL
[2017-12-21 23:43] VITALS: BP 111/73
== END 2017-12-21 23:00 | disposition home or self-care (01) ==
LOC: ER 19:00
DX: K29.70 Gastritis, unspecified, without bleeding (principal); K29.80 Duodenitis without bleeding; R07.9 Chest pain, unspecified; R10.13 Epigastric pain; R06.02 Shortness of breath; R42 Dizziness and giddiness; F41.9 Anxiety disorder, unspecified; R53.1 Weakness; R41.0 Disorientation, unspecified; J44.9 Chronic obstructive pulmonary disease, unspecified; Z88.6 Allergy status to analgesic agent
CPT/HCPCS: 99285; 36415; 82553; 82550; 83690; 85025; 80053; 84484; 74022; J3490 ×3

== ENCOUNTER 2018-01-24 11:06 | Emergency (ER) | payer MEDICAID ==
[2018-01-24] MEDS ORDERED: GUAIFENESIN/D-METHORPHAN (200-20 MG) SYRUP 10 ML PO ONE (11:47)
[2018-01-24] MEDS ORDERED: ALBUTEROL SULFATE 0.083% NEB 2.5 MG/3 ML AMPUL NEB ONE ×2 (11:47→17:23)
--- NOTE | 2018-01-24 12:11 | ER Document Report ---
ED Respiratory Problem - General Chief Complaint: Breathing Difficulty Stated Complaint: COUGH Time Seen by Provider: 01/24/18 11:47 Mode of Arrival: Ambulatory Information source: Patient Notes: Patient is a 37-year-old female with asthma who presents to the ER today for shortness of breath, productive cough and wheezing 3 days. Patient's son was just diagnosed with pneumonia and she states all of her children have upper respiratory infections at home. Patient has been taking her albuterol inhaler which is not been helping at home. She has not been trying anything for the cough. She denies any fevers but admits to some mild chills. TRAVEL OUTSIDE OF THE [place] IN LAST 30 DAYS: No - Related Data Allergies/Adverse Reactions: acetaminophen [From Tylenol] Allergy (Verified 01/24/18 11:07) Past Medical History - General Information source: Patient - Social History Smoking Status: Current Every Day Smoker Chew tobacco use (# tins/day): No Frequency of alcohol use: None Drug Abuse: None Family History: COPD Patient has suicidal ideation: No Patient has homicidal ideation: No - Past Medical History Cardiac Medical History: Denies: Hx Congestive Heart Failure, Hx Coronary Artery Disease, Hx Heart Attack, Hx Hypertension, Hx Pulmonary Embolism Pulmonary Medical History: Reports: Hx Asthma, Hx Bronchitis, Hx COPD - ACUTE, Hx Pneumonia Neurological Medical History: Reports: Hx Seizures - POSSIBLE - NO MEDS. Denies : Hx Cerebrovascular Accident Renal/ Medical History: Denies: Hx Peritoneal Dialysis Musculoskeltal Medical History: Denies Hx Arthritis - Immunizations Hx Diphtheria, Pertussis, Tetanus Vaccination: Yes Hx Pneumococcal Vaccination: 09/15/17 Review of Systems - Review of Systems Constitutional: See HPI EENT: No symptoms reported Cardiovascular: No symptoms reported Respiratory: See HPI Gastrointestinal: No symptoms reported Genitourinary: No symptoms reported Female Genitourinary: No symptoms reported Musculoskeletal: No symptoms reported Skin: No symptoms reported Hematologic/Lymphatic: No symptoms reported Neurological/Psychological: No symptoms reported Physical Exam - Vital signs Vitals: Temp Pulse Resp BP Pulse Ox 99.2 F 91 26 H 121/82 93 01/24/18 11:14 01/24/18 11:14 01/24/18 11:14 01/24/18 11:14 01/24/18 11:14 - Notes Notes: PHYSICAL EXAMINATION: GENERAL: Tachypneic, short of breath and in mild acute distress. HEAD: Atraumatic, normocephalic. EYES: Pupils equal round and reactive to light, extraocular movements intact, sclera anicteric, conjunctiva are normal. ENT: ear canals without erythema or foreign body, TMs pearly pollock with good bony landmarks, nares patent, oropharynx clear without exudates. Moist mucous membranes. Airway patent NECK: Normal range of motion, supple without lymphadenopathy LUNGS: Moderate wheezes throughout, no rales or rhonchi. HEART: Regular rate and rhythm without murmurs ABDOMEN: Soft, no tenderness. No guarding, no rebound BACK: no vertebral tenderness, normal ROM GI/: no CVA tenderness EXTREMITIES: Normal range of motion, no pitting edema. No cyanosis. NEUROLOGICAL: Cranial nerves grossly intact. Normal sensory/motor exams. PSYCH: Anxious SKIN: Warm, Dry, normal turgor, no rashes or lesions noted Course - Re-evaluation Re-evalutation: 01/24/18 15:41 I was going to admit patient as we had to place her on 2 L of oxygen because her oxygen saturation would dip down to 89%, 95% on room air at the highest. This does keep fluctuating randomly. It does not appear to have any correlation with the way patient is positioned or when I walk into the room. Patient does have high anxiety, and Ativan made her very jittery. She has actually normalized her vital signs after magnesium, multiple breathing treatments, Solu-Medrol. Patient was watched for. Over 4 hours here in the emergency department. I was on the fence about admitting her today but she refuses admission. states that he has a pulse oximeter at home and will monitor her oxygen saturation and will bring her back if it dips below 93% . I will send her home on antibiotic, prednisone, cough medication and DuoNeb. 01/24/18 18:22 01/24/18 20:38 - Vital Signs Vital signs: Temp Pulse Resp BP Pulse Ox 98 F 72 22 H 118/72 98 01/24/18 19:20 01/24/18 19:20 01/24/18 19:20 01/24/18 19:20 01/24/18 19:20 - Laboratory Result Diagrams: 01/24/18 16:13 01/24/18 16:13 Laboratory results interpreted by me: 01/24/18 01/24/18 16:13 16:13 Plt Count 134 L Seg Neutrophils % 85.5 H Lymphocytes % 11.4 L Monocytes % 2.6 L Sodium 145.8 H Chloride 110 H Discharge - Discharge Clinical Impression: Anxiety Asthma exacerbation Qualifiers: Asthma severity: unspecified severity Asthma persistence: unspecified Qualified Code(s): J45.901 - Unspecified asthma with (acute) exacerbation Condition: Stable Disposition: HOME, SELF-CARE Additional Instructions: Return immediately for any new or worsening symptoms. Follow up with primary care provider, call tomorrow to make followup appointment. Prescriptions: Albuterol Sulfate [Albuterol Sulfate 2.5mg/3 mL] 1 vial IH Q4 PRN #25 vial PRN Reason: Alprazolam [Xanax 0.25 mg Tablet] 0.25 mg PO Q8 PRN #10 tab PRN Reason: Azithromycin [Zithromax 250 mg Tablet] 250 mg PO ASDIR PRN #6 tablet PRN Reason: Ipratropium/Albuterol Sulfate [Duoneb 3 ml Ampul] 3 ml NEB Q6 PRN #25 vial.neb PRN Reason: Prednisone 60 mg PO DAILY #15 tablet Forms: Return to Work Referrals: ANTONINA SIM PA-C [NO LOCAL MD] - Follow up as needed
[2018-01-24] MEDS ORDERED: IBUPROFEN 800 MG TABLET PO ONE (12:19)
--- NOTE | 2018-01-24 12:58 | RADIOLOGY REPORT (SQ) ---
EXAM DESCRIPTION: CHEST 2 VIEWS COMPLETED DATE/TIME: 01/24/2018 12:33 pm REASON FOR STUDY: sob, cough COMPARISON: None. EXAM PARAMETERS: NUMBER OF VIEWS: two views TECHNIQUE: Digital Frontal and Lateral radiographic views of the chest acquired. RADIATION DOSE: NA LIMITATIONS: none FINDINGS: LUNGS AND PLEURA: No opacities, masses or pneumothorax. No pleural effusion. MEDIASTINUM AND HILAR STRUCTURES: No masses or contour abnormalities. HEART AND VASCULAR STRUCTURES: Heart normal size. No evidence for failure. BONES: No acute findings. HARDWARE: None in the chest. OTHER: No other significant finding. IMPRESSION: NO ACUTE RADIOGRAPHIC FINDING IN THE CHEST. TECHNICAL DOCUMENTATION: JOB ID: [id number] [employer]- All Rights Reserved Reading location - IP/workstation name: [email or web address]
[2018-01-24] MEDS ORDERED: METHYLPREDNISOLONE INJ 125 MG/2 ML SDV IV ONE (13:18)
[2018-01-24] MEDS ORDERED: IPRATROPIUM/ALBUTEROL 0.5-2.5 MG/3 ML AMPUL NEB ONE (13:18)
[2018-01-24] MEDS ORDERED: METHYLPREDNISOLONE INJ 125 MG/2 ML SDV IM ONE (13:19)
[2018-01-24] MEDS ORDERED: AZITHROMYCIN INJ 500 MG VIAL IV ONE (15:36)
[2018-01-24 16:28] LABS: ABSOLUTE LYMPHOCYTES (AUTO) 0.7 10^3/uL (0.5-4.7); ABSOLUTE MONOCYTES (AUTO) 0.2 10^3/uL (0.1-1.4); ABSOLUTE NEUT (AUTO) 5.5 10^3/uL (1.7-8.2); BASOPHILS % (AUTO) 0.3 % (0-2); EOSINOPHILS % (AUTO) 0.2 % (0-6); HEMOGLOBIN 13.5 g/dL (12.0-15.5); LYMPHOCYTES % (AUTO) 11.4 % (13-45); MEAN CORPUSCULAR HEMOGLOBIN 31.9 pg (27.0-33.4); MEAN CORPUSCULAR HGB CONC 34.5 g/dL (32.0-36.0); MEAN CORPUSCULAR VOLUME 93 fl (80-97); MONOCYTES % (AUTO) 2.6 % (3-13); PLATELET COUNT 134 10^3/uL (150-450); RED BLOOD COUNT 4.22 10^6/uL (3.72-5.28); RED CELL DISTRIBUTION WIDTH 13.4 % (11.5-14.0); SEGMENTED NEUTROPHILS % (AUTO) 85.5 % (42-78); TOTAL CELLS COUNTED % (AUTO) 100 %; WHITE BLOOD COUNT 6.5 10^3/uL (4.0-10.5)
[2018-01-24] MEDS: MAGNESIUM SULFATE/D5W 1 GM/100 ML RTUPB IV SCH ×2 (16:36→17:23)
[2018-01-24 16:44] LABS: ALANINE AMINOTRANSFERASE 29 U/L (9-52); ALBUMIN 4.2 g/dL (3.5-5.0); ALKALINE PHOSPHATASE 61 U/L (38-126); ANION GAP 13 (5-19); ASPARTATE AMINO TRANSFERASE 16 U/L (14-36); BILIRUBIN,DIRECT 0.2 mg/dL (0.0-0.4); BILIRUBIN,TOTAL 0.5 mg/dL (0.2-1.3); BLOOD UREA NITROGEN 11 mg/dL (7-20); CALCIUM 9.2 mg/dL (8.4-10.2); CARBON DIOXIDE 23 mmol/L (22-30); CHLORIDE 110 mmol/L (98-107); GLUCOSE 110 mg/dL (75-110); POTASSIUM 3.9 mmol/L (3.6-5.0); SODIUM 145.8 mmol/L (137-145); TOTAL PROTEIN 7.2 g/dL (6.3-8.2)
[2018-01-24] MEDS ORDERED: LORAZEPAM INJ 2 MG/1 ML VIAL IV ONE (17:14)
[2018-01-24] MEDS ORDERED: ALPRAZOLAM 0.5 MG TABLET PO ONE (18:18)
[2018-01-24 19:47] VITALS: BP 118/72
== END 2018-01-24 19:20 | disposition home or self-care (01) ==
LOC: ER 11:06
DX: F41.9 Anxiety disorder, unspecified (principal); J45.901 Unspecified asthma with (acute) exacerbation; F17.200 Nicotine dependence, unspecified, uncomplicated; Z88.6 Allergy status to analgesic agent; Z99.81 Dependence on supplemental oxygen
CPT/HCPCS: 94640 ×2; 99284; 96372; 96375; 96365; 96368; 36415; 85025; 80053; 71046; J3490 ×3; J2930; J2060; J3475; J0456; J7620

== ENCOUNTER 2018-01-30 02:41 | Inpatient (IN) | payer MEDICAID ==
[2018-01-30] MEDS ORDERED: IPRATROPIUM/ALBUTEROL 0.5-2.5 MG/3 ML AMPUL NEB ONE ×2 (02:45→02:47)
[2018-01-30] MEDS ORDERED: MAGNESIUM SULFATE/D5W 2 GM/200 ML RTUPB IV ONE (02:45)
[2018-01-30] MEDS: MAGNESIUM SULFATE/D5W 1 GM/100 ML RTUPB IV SCH ×2 (02:51→03:05)
[2018-01-30 03:06] LABS: ABSOLUTE BASOPHILS # (AUTO) 0.1 10^3/uL (0.0-0.2); ABSOLUTE EOSINOPHILS # (AUTO) 0.2 10^3/uL (0.0-0.6); ABSOLUTE LYMPHOCYTES (AUTO) 2.2 10^3/uL (0.5-4.7); ABSOLUTE MONOCYTES (AUTO) 0.4 10^3/uL (0.1-1.4); ABSOLUTE NEUT (AUTO) 3.7 10^3/uL (1.7-8.2); BASOPHILS % (AUTO) 1.2 % (0-2); EOSINOPHILS % (AUTO) 3.3 % (0-6); HEMATOCRIT 42.1 % (36.0-47.0); HEMOGLOBIN 14.7 g/dL (12.0-15.5); LYMPHOCYTES % (AUTO) 33.4 % (13-45); MEAN CORPUSCULAR HEMOGLOBIN 31.9 pg (27.0-33.4); MEAN CORPUSCULAR HGB CONC 34.9 g/dL (32.0-36.0); MEAN CORPUSCULAR VOLUME 92 fl (80-97); MONOCYTES % (AUTO) 6.3 % (3-13); PLATELET COUNT 195 10^3/uL (150-450); RED CELL DISTRIBUTION WIDTH 13.3 % (11.5-14.0); SEGMENTED NEUTROPHILS % (AUTO) 55.8 % (42-78); TOTAL CELLS COUNTED % (AUTO) 100 %; WHITE BLOOD COUNT 6.7 10^3/uL (4.0-10.5)
[2018-01-30 03:15] LABS: VENOUS BLOOD BASE EXCESS -0.3 mmol/L; VENOUS BLOOD HCO3 23.4 mmol/L (20-32); VENOUS BLOOD PCO2 35.5 mmHg (35-63); VENOUS BLOOD PH 7.44 (7.30-7.42)
[2018-01-30 03:38] LABS: ALANINE AMINOTRANSFERASE 27 U/L (9-52); ALBUMIN 4.3 g/dL (3.5-5.0); ALKALINE PHOSPHATASE 70 U/L (38-126); ANION GAP 13 (5-19); ASPARTATE AMINO TRANSFERASE 19 U/L (14-36); BILIRUBIN,DIRECT 0.4 mg/dL (0.0-0.4); BILIRUBIN,TOTAL 0.7 mg/dL (0.2-1.3); BLOOD UREA NITROGEN 9 mg/dL (7-20); CALCIUM 9.4 mg/dL (8.4-10.2); CARBON DIOXIDE 25 mmol/L (22-30); CHLORIDE 107 mmol/L (98-107); GLUCOSE 116 mg/dL (75-110); POTASSIUM 3.7 mmol/L (3.6-5.0); SODIUM 145.2 mmol/L (137-145); TOTAL PROTEIN 7.6 g/dL (6.3-8.2)
--- NOTE | 2018-01-30 03:38 | RADIOLOGY REPORT (SQ) ---
EXAM DESCRIPTION: XR CHEST 1 VIEW COMPLETED DATE/TME: 01/30/2018 02:46 CLINICAL HISTORY: SOB COMPARISON: 01/24/2018 FINDINGS: Single frontal view of the chest. The cardiomediastinal silhouette has normal size and contour. No consolidation, pneumothorax, or pleural effusion. No displaced rib fractures identified. Leads overlie the chest. Upper abdominal soft tissues are unremarkable. IMPRESSION: 1. No acute pulmonary process identified.
[2018-01-30] MEDS ORDERED: ALBUTEROL SULFATE 0.083% NEB 2.5 MG/3 ML AMPUL NEB ONE (04:28)
--- NOTE | 2018-01-30 04:45 | RADIOLOGY REPORT (SQ) ---
EXAM DESCRIPTION: CT CHEST ANGIOGRAPHY WITHOUT THEN WITH IV CONTRAST COMPLETED DATE/TME: 01/30/2018 03:17 CLINICAL HISTORY: hypoxia, SOB COMPARISON: None Available. TECHNIQUE: CTA of the chest obtained following the uncomplicated intravenous administration of 82.5 mL Isovue-370. 3-D/MIP reformatted images of the chest available for evaluation. DLP: 796.11 mGycm FINDINGS: Chest: Pulmonary arteries: Contrast bolus is adequate.No filling defects identified in the pulmonary arteries to suggest pulmonary embolus. Thyroid:No abnormalities of the visualized thyroid. Great Vessels:Great vessels have normal anatomic configuration. Thoracic Aorta:No abnormalities of the thoracic aorta identified. Heart:No cardiomegaly, significant pericardial effusion, or coronary artery atherosclerosis Lymph Nodes:No enlarged mediastinal lymph nodes identified. Esophagus: Small hiatal hernia. Other:No additional findings. Lungs:No alveolar or interstitial airspace opacities identified. Pleura:No pleural effusion or pneumothorax. Trachea/Airways:No abnormalities of the visualized trachea or airways. Bones:No destructive osseous lesions. Upper Abdomen:Limited images of the upper abdomen demonstrate no definite abnormalities of visualized portions of the gallbladder, pancreas, spleen, adrenal glands, or kidneys. In the right hepatic lobe there is a 2.0 cm indeterminate hypodense nodule. IMPRESSION: 1. No pulmonary process identified. 2. In the right hepatic lobe there is 2.0 cm indeterminate hypodense nodule. Follow-up [address] or MRI recommended for complete characterization. This exam was performed according to our departmental dose-optimization program, which includes automated exposure control, adjustment of the mA and/or kV according to patient size and/or use of iterative reconstruction technique.
--- NOTE | 2018-01-30 05:01 | ER Document Report ---
ED Respiratory Problem - General Chief Complaint: Asthma Exacerbation Stated Complaint: DIFFICULTY BREATHING Time Seen by Provider: 01/30/18 02:46 Notes: The patient is a 37-year-old female, past medical history asthma, anxiety, former smoker, presents with increasing shortness of breath and wheezing over the past day. She was seen in the ER earlier in the week and started on steroids and albuterol. She felt better and decided to go home at that time. She called EMS tonight when she is having to do breathing and they provided her with 2 albuterol treatments and 125 mg IV Solu-Medrol. Patient denies chest pain, leg swelling, hemoptysis, back pain, fevers, chills or rash. TRAVEL OUTSIDE OF THE [place] IN LAST 30 DAYS: No - Related Data Allergies/Adverse Reactions: acetaminophen [From Tylenol] Allergy (Verified 01/24/18 11:07) Past Medical History - General Information source: Patient - Social History Smoking Status: Former Smoker Family History: COPD Patient has suicidal ideation: No Patient has homicidal ideation: No - Past Medical History Cardiac Medical History: Denies: Hx Congestive Heart Failure, Hx Coronary Artery Disease, Hx Heart Attack, Hx Hypertension, Hx Pulmonary Embolism Pulmonary Medical History: Reports: Hx Asthma, Hx Bronchitis, Hx COPD - ACUTE, Hx Pneumonia Neurological Medical History: Reports: Hx Seizures - POSSIBLE - NO MEDS. Denies : Hx Cerebrovascular Accident Renal/ Medical History: Denies: Hx Peritoneal Dialysis Musculoskeltal Medical History: Denies Hx Arthritis - Immunizations Hx Diphtheria, Pertussis, Tetanus Vaccination: Yes Hx Pneumococcal Vaccination: 09/15/17 Review of Systems - Review of Systems Notes: REVIEW OF SYSTEMS: CONSTITUTIONAL: -fevers, -chills EENT: -eye pain, -difficulty swallowing, -nasal congestion CARDIOVASCULAR: -chest pain, -syncope. RESPIRATORY: +cough, +SOB GASTROINTESTINAL: -abdominal pain, -nausea, -vomiting, -diarrhea GENITOURINARY: -dysuria, -hematuria MUSCULOSKELETAL: -back pain, -neck pain SKIN: -rash or skin lesions. HEMATOLOGIC: -easy bruising or bleeding. LYMPHATIC: -swollen, enlarged glands. NEUROLOGICAL: -altered mental status or loss of consciousness, -headache, - neurologic symptoms PSYCHIATRIC: -anxiety, -depression. ALL OTHER SYSTEMS REVIEWED AND NEGATIVE. Physical Exam - Vital signs Vitals: Pulse Ox 90 L 01/30/18 02:44 - Notes Notes: PHYSICAL EXAMINATION: GENERAL: Mild respiratory distress. HEAD: Atraumatic, normocephalic. EYES: Pupils equal round and reactive to light, extraocular movements intact, sclera anicteric, conjunctiva are normal. ENT: nares patent, oropharynx clear without exudates. Moist mucous membranes. NECK: Normal range of motion, supple without lymphadenopathy LUNGS: Mild tachypnea. Speaking in full sentences. Diffuse rhonchi and wheezing. HEART: Regular rate and rhythm without murmurs ABDOMEN: Soft, nontender, normoactive bowel sounds. No guarding, no rebound. No masses appreciated. EXTREMITIES: Normal range of motion, no pitting or edema. No cyanosis. NEUROLOGICAL: Cranial nerves grossly intact. Normal speech, normal gait. Normal sensory and motor exams. PSYCH: Normal mood, normal affect. SKIN: Warm, Dry, normal turgor, no rashes or lesions noted. Course - Re-evaluation Re-evalutation: Patient with asthma exacerbation and hypoxia down to 81% on room air. Even on 6 L nasal cannula and after multiple breathing treatments, magnesium and Solu- Medrol, she still was hypoxic to 85%. CTA ordered, which did not show any evidence of a PE. Patient placed on BiPAP to help with her hypoxia. The positive pressure improved her oxygenation. Patient requires admission for further evaluation and treatment. 01/30/18 05:[address] Vizcarra and he has admitted patient as Inpatient to [facility]. - Vital Signs Vital signs: Temp Pulse Resp BP Pulse Ox 16 107/69 85 L 01/30/18 04:23 01/30/18 04:23 01/30/18 04:22 - Laboratory Result Diagrams: 01/30/18 02:55 01/30/18 02:55 Laboratory results interpreted by me: 01/30/18 01/30/18 02:55 02:55 VBG pH 7.44 H Sodium 145.2 H Glucose 116 H - Diagnostic Test Radiology reviewed: Image reviewed, Reports reviewed Radiology results interpreted by me: CXR: NAD CTA Chest: 1. No pulmonary process identified. 2. In the right hepatic lobe there is 2.0 cm indeterminate hypodense nodule. Follow-up [address] or MRI recommended for complete characterization. Critical Care Note - Critical Care Note Total time excluding time spent on procedures (mins): 45 Discharge - Discharge Clinical Impression: Hypoxia, Nodule on liver Asthma exacerbation Qualifiers: Asthma severity: unspecified severity Asthma persistence: unspecified Qualified Code(s): J45.901 - Unspecified asthma with (acute) exacerbation Condition: Serious Disposition: ADMITTED INPATIENT Admitting Provider: [facility] Unit Admitted: [facility]
[2018-01-30] MEDS ORDERED: ONDANSETRON HCL INJ/PF 4 MG/2 ML SDV IV PRN (05:20)
--- NOTE | 2018-01-30 05:36 | PDOC H&P ---
History of Present Illness Admission Date/PCP: 01/30/18 05:10 History of Present Illness: JAYDEN SIMMONS is a 37 year old female patient with history of bronchial asthma, hypertension, anxiety disorder and active smoker brought by EMS with chief complaint of shortness of breath and wheezing of one day duration. Patient was seen about 4 days ago at the ER for the same complaint at that time she was offered admission but she declined and sent home with steroid. Despite getting 3 rounds of DuoNeb and steroid patient continued to have wheezing and later she was put on BiPAP and she gets some relief. She denies any chest pain, fever, palpitation or diaphoresis. She endorses dry cough. She does not have any nausea vomiting abdominal pain or diarrhea. Her blood works are unremarkable and CTA of the chest is negative for pulmonary embolism Past Medical History Cardiac Medical History: Denies: Congestive Heart Failure, Coronary Artery Disease, Myocardial Infarction, Hypertension, Pulmonary Embolism Pulmonary Medical History: Reports: Asthma, Bronchitis, Chronic Obstructive Pulmonary Disease (COPD) - ACUTE, Pneumonia Neurological Medical History: Reports: Seizures - POSSIBLE - NO MEDS Musculoskeltal Medical History: Denies: Arthritis Hematology: Denies: Anemia Social History Smoking Status: Current Every Day Smoker Hx Recreational Drug Use: No Drugs: None Family History Family History: COPD Parental Family History Reviewed: Yes Children Family History Reviewed: Yes Sibling(s) Family History Reviewed.: Yes Medication/Allergy Home Medications: Albuterol Sulfate [Ventolin Hfa] 1 - 2 puff IH Q4 PRN #1 hfa.aer.ad 09/01/17 Omeprazole Magnesium [Prilosec Otc] 20 mg PO DAILY 30 Days #30 tablet. Cholecalciferol (Vitamin D3) [Vitamin D3] 1,000 unit PO DAILY 12/21/17 Benavides-3/Dha/Epa/Fish Oil [Fish Oil 1,000 mg Softgel] 1 each PO DAILY 12/21/17 Albuterol Sulfate [Albuterol Sulfate 2.5mg/3 mL] 1 vial IH Q4 PRN #25 vial 01/24 Alprazolam [Xanax 0.25 mg Tablet] 0.25 mg PO Q8 PRN #10 tab 01/24/18 Azithromycin [Zithromax 250 mg Tablet] 250 mg PO ASDIR PRN #6 tablet 06/12/18 Ipratropium/Albuterol Sulfate [Duoneb 3 ml Ampul] 3 ml NEB Q6 PRN #25 vial.neb 01/24/18 Prednisone 60 mg PO DAILY #15 tablet 01/24/18 Allergies/Adverse Reactions: acetaminophen [From Tylenol] Allergy (Verified 01/24/18 11:07) Review of Systems Constitutional: ABSENT: chills, fever(s), headache(s), weight gain, weight loss Eyes: ABSENT: visual disturbances Ears: ABSENT: hearing changes Cardiovascular: ABSENT: chest pain, dyspnea on exertion, edema, orthropnea, palpitations Respiratory: ABSENT: cough, hemoptysis Gastrointestinal: ABSENT: abdominal pain, constipation, diarrhea, hematemesis, hematochezia, nausea, vomiting Genitourinary: ABSENT: dysuria, hematuria Musculoskeletal: ABSENT: joint swelling Integumentary: ABSENT: rash, wounds Neurological: ABSENT: abnormal gait, abnormal speech, confusion, dizziness, focal weakness, syncope Psychiatric: ABSENT: anxiety, depression, homidical ideation, suicidal ideation Endocrine: ABSENT: cold intolerance, heat intolerance, polydipsia, polyuria Hematologic/Lymphatic: ABSENT: easy bleeding, easy bruising Physical Exam Vital Signs: Temp Pulse Resp BP Pulse Ox 25 H 122/71 93 01/30/18 05:01 01/30/18 05:01 01/30/18 05:01 General appearance: PRESENT: mild distress Head exam: PRESENT: atraumatic, normocephalic Eye exam: PRESENT: conjunctiva pink, EOMI, PERRLA. ABSENT: scleral icterus Neck exam: ABSENT: carotid bruit, JVD, lymphadenopathy, thyromegaly Respiratory exam: PRESENT: wheezes Cardiovascular exam: PRESENT: RRR. ABSENT: diastolic murmur, rubs, systolic murmur GI/Abdominal exam: PRESENT: normal bowel sounds, soft. ABSENT: distended, guarding, mass, organolmegaly, rebound, tenderness Extremities exam: PRESENT: full ROM. ABSENT: calf tenderness, clubbing, pedal edema Neurological exam: PRESENT: alert, awake, oriented to time, oriented to situation Psychiatric exam: PRESENT: normal mood Results Impressions: Chest X-Ray 01/30/18 02:46 IMPRESSION: 1. No acute pulmonary process identified. Chest/Abdomen CTA 01/30/18 03:17 IMPRESSION: 1. No pulmonary process identified. 2. In the right hepatic lobe there is 2.0 cm indeterminate hypodense nodule. Follow-up [address] or MRI recommended for complete characterization. This exam was performed according to our departmental dose-optimization program, which includes automated exposure control, adjustment of the mA and/or kV according to patient size and/or use of iterative reconstruction technique. Assessment & Plan - Diagnosis (1) Asthma exacerbation Qualifiers: Asthma severity: unspecified severity Asthma persistence: unspecified Qualified Code(s): J45.901 - Unspecified asthma with (acute) exacerbation Is this a current diagnosis for this admission?: Yes Plan: Patient has been on supplemental oxygen, BiPAP, bronchodilator and steroid. (2) Tobacco dependency Is this a current diagnosis for this admission?: Yes Plan: Counseled and encouraged to quit smoking - Inpatient Certification Medical Necessity: Need Close Monitoring Due to Risk of Patient Decompensation - Failed outpatient treatment
[2018-01-30] MEDS: METHYLPREDNISOLONE INJ 125 MG/2 ML SDV IV SCH ×3 (06:53→17:08)
[2018-01-30] MEDS: IPRATROPIUM/ALBUTEROL 0.5-2.5 MG/3 ML AMPUL NEB SCH ×5 (08:38→23:56)
[2018-01-30] MEDS: ENOXAPARIN SODIUM INJ 40 MG/0.4 ML DISP.SYRIN SUBCUT SCH (09:47)
[2018-01-30] MEDS ORDERED: GUAIFENESIN/D-METHORPHAN (200-20 MG) SYRUP 10 ML PO PRN (14:00)
--- NOTE | 2018-01-30 15:34 | EKG REPORT ---
SEVERITY:- BORDERLINE ECG - SINUS RHYTHM BORDERLINE PROLONGED QT INTERVAL : Confirmed by: Naida Han MD 30-Jan-2018 15:34:05
[2018-01-30] MEDS: ALPRAZOLAM 0.5 MG TABLET PO PRN ×2 (16:19→22:03)
[2018-01-30] MEDS: GUAIFENESIN 600 MG TABLET.SA PO SCH (17:08)
[2018-01-30] MEDS: FAMOTIDINE 20 MG TABLET PO SCH (22:03)
[2018-01-31] MEDS: METHYLPREDNISOLONE INJ 125 MG/2 ML SDV IV SCH ×5 (00:46→23:13)
[2018-01-31] MEDS: IPRATROPIUM/ALBUTEROL 0.5-2.5 MG/3 ML AMPUL NEB SCH ×5 (04:03→20:27)
[2018-01-31 05:03] LABS: HEMOGLOBIN 13.4 g/dL (12.0-15.5); MEAN CORPUSCULAR HEMOGLOBIN 31.5 pg (27.0-33.4); MEAN CORPUSCULAR HGB CONC 34.3 g/dL (32.0-36.0); MEAN CORPUSCULAR VOLUME 92 fl (80-97); PLATELET COUNT 186 10^3/uL (150-450); RED BLOOD COUNT 4.25 10^6/uL (3.72-5.28); RED CELL DISTRIBUTION WIDTH 13.5 % (11.5-14.0); WHITE BLOOD COUNT 12.6 10^3/uL (4.0-10.5)
[2018-01-31] MEDS: GUAIFENESIN 600 MG TABLET.SA PO SCH ×2 (05:43→17:53)
[2018-01-31 05:57] LABS: ANION GAP 14 (5-19); BLOOD UREA NITROGEN 11 mg/dL (7-20); CALCIUM 9.7 mg/dL (8.4-10.2); CARBON DIOXIDE 23 mmol/L (22-30); CHLORIDE 108 mmol/L (98-107); GLUCOSE 127 mg/dL (75-110); POTASSIUM 4.5 mmol/L (3.6-5.0); SODIUM 144.5 mmol/L (137-145)
[2018-01-31] MEDS: FAMOTIDINE 20 MG TABLET PO SCH ×2 (10:30→22:08)
[2018-01-31] MEDS: ENOXAPARIN SODIUM INJ 40 MG/0.4 ML DISP.SYRIN SUBCUT SCH (10:30)
[2018-01-31] MEDS: IBUPROFEN 600 MG TABLET PO PRN ×2 (14:25→22:08)
--- NOTE | 2018-01-31 17:28 | PDOC PROGRESS REPORT ---
Subjective Progress Note for:: 01/31/18 Subjective:: No adverse events overnight. She says she still little bit short of breath primarily with exertion, but she feels a lot better than she did when she came in. No fevers. No productive cough, but she does feel like the congestion in her chest is breaking up. Reason For Visit: ASTHMA EXACERBATION Physical Exam Vital Signs: Temp Pulse Resp BP Pulse Ox 98.6 F 101 H 20 139/71 H 97 01/31/18 15:08 01/31/18 16:49 01/31/18 16:49 01/31/18 15:08 01/31/18 16:49 Intake & Output 01/30/18 01/31/18 02/01/18 06:59 06:59 06:59 Intake Total 1940 356 Balance 1940 356 Weight 105.8 kg General appearance: PRESENT: no acute distress, cooperative, obese Head exam: PRESENT: atraumatic, normocephalic Respiratory exam: PRESENT: prolonged expiratory phas, rhonchi, symmetrical, wheezes. ABSENT: accessory muscle use, chest wall tenderness, crackles, rales Cardiovascular exam: PRESENT: RRR, +S1, +S2. ABSENT: diastolic murmur, gallop, rubs Vascular exam: PRESENT: normal capillary refill GI/Abdominal exam: PRESENT: normal bowel sounds, soft. ABSENT: ascites, distended, guarding, rebound, tenderness Extremities exam: ABSENT: pedal edema Musculoskeletal exam: PRESENT: full ROM, normal inspection. ABSENT: deformity Neurological exam: PRESENT: alert, awake, oriented to person, oriented to place , oriented to time Results Laboratory Results: 01/31/18 04:23 01/31/18 04:23 01/31/18 01/31/18 04:23 04:23 WBC 12.6 H RBC 4.25 Hgb 13.4 Hct 39.0 MCV 92 MCH 31.5 MCHC 34.3 RDW 13.5 Plt Count 186 Sodium 144.5 Potassium 4.5 Chloride 108 H Carbon Dioxide 23 Anion Gap 14 BUN 11 Creatinine 0.57 Est GFR ( Amer) > 60 Est GFR (Non-Af Amer) > 60 Glucose 127 H Calcium 9.7 Impressions: Chest X-Ray 01/30/18 02:46 IMPRESSION: 1. No acute pulmonary process identified. Chest/Abdomen CTA 06/18/18 03:17 IMPRESSION: 1. No pulmonary process identified. 2. In the right hepatic lobe there is 2.0 cm indeterminate hypodense nodule. Follow-up [address] or MRI recommended for complete characterization. This exam was performed according to our departmental dose-optimization program, which includes automated exposure control, adjustment of the mA and/or kV according to patient size and/or use of iterative reconstruction technique. Assessment & Plan - Diagnosis (1) Asthma exacerbation Qualifiers: Asthma severity: mild Asthma persistence: persistent Qualified Code(s): J45.31 - Mild persistent asthma with (acute) exacerbation Is this a current diagnosis for this admission?: Yes Plan: Continue with steroids, nebulizers, supplemental oxygen. Recommended that she have follow-up with road crossing guard for pulmonary function testing as an outpatient. Will transition to prednisone once it appears that her breathing has improved a bit more. (2) Hypoxia Is this a current diagnosis for this admission?: Yes Plan: Supplemental O2 to maintain SPO2 greater than 90%. She is down to 2.5 L oxygen saturations are 95-96%. (3) Current every day smoker Is this a current diagnosis for this admission?: Yes Plan: He smokes 2 packs a day. I strongly encouraged cessation. (4) Obesity (BMI 35.0-39.9 without comorbidity) Is this a current diagnosis for this admission?: Yes Plan: Recommend lifestyle modification. - Time Time Spent with patient: 25-34 minutes Smoking Cessation Education: over 10 minutes Medications reviewed and adjusted accordingly: Yes Anticipated discharge: Home Within: within 72 hours
[2018-01-31] MEDS: ALPRAZOLAM 0.5 MG TABLET PO PRN (23:42)
[2018-02-01] MEDS: IPRATROPIUM/ALBUTEROL 0.5-2.5 MG/3 ML AMPUL NEB SCH ×4 (00:12→12:39)
[2018-02-01] MEDS: GUAIFENESIN 600 MG TABLET.SA PO SCH (05:53)
[2018-02-01] MEDS: METHYLPREDNISOLONE INJ 125 MG/2 ML SDV IV SCH ×2 (05:54→11:32)
[2018-02-01] MEDS: ENOXAPARIN SODIUM INJ 40 MG/0.4 ML DISP.SYRIN SUBCUT SCH (11:26)
[2018-02-01] MEDS: FAMOTIDINE 20 MG TABLET PO SCH (11:32)
[2018-02-01 12:22] VITALS: BP 124/73
--- NOTE | 2018-02-01 18:27 | PDOC DISCHARGE SUMMARY ---
General - Admit/Disc Date/PCP Admission Date/Primary Care Provider: 01/30/18 05:10 Discharge Date: 02/01/18 - Discharge Diagnosis (1) Asthma exacerbation Is this a current diagnosis for this admission?: Yes Summary: Responded well to IV steroids and bronchodilators, was on room air at discharge. (2) Hypoxia Is this a current diagnosis for this admission?: Yes Summary: She initially needed oxygen support, but was doing well with an SPO2 in the mid to upper 90s on room air at discharge. (3) Current every day smoker Is this a current diagnosis for this admission?: Yes Summary: She seems motivated to quit after our discussion and her experience here. (4) Obesity (BMI 35.0-39.9 without comorbidity) Is this a current diagnosis for this admission?: Yes Summary: Encourage lifestyle modification. - Additional Information Resuscitation Status: Full Code Discharge Diet: As Tolerated Discharge Activity: Activity As Tolerated Prescriptions: Guaifenesin [Mucinex Sr 600 mg Tablet.sa] 600 mg PO Q12A #30 tablet. Nebulizer [Nebulizer Machine] 1 each ASDIR PRN #1 kit PRN Reason: Prednisone 40 mg PO DAILY #10 tablet Home Medications: Albuterol Sulfate [Proair HFA] 1 puff IH Q4HP PRN 01/30/18 Albuterol Sulfate [Ventolin 0.083% Neb 2.5 mg/3 mL Ampul] 3 ml NEB RTQ4HP PRN Ipratropium/Albuterol Sulfate [Duoneb 3 ml Ampul] 3 ml NEB RTQ6HP PRN 01/30/18 Omeprazole 20 mg PO DAILY 01/30/18 Guaifenesin [Mucinex Sr 600 mg Tablet.sa] 600 mg PO Q12A #30 tablet.sa 02/01/18 Nebulizer [Nebulizer Machine] 1 each ASDIR PRN #1 kit 02/01/18 Prednisone 40 mg PO DAILY #10 tablet 02/01/18 History of Present Illness History of Present Illness: JAYDEN SIMMONS is a 37 year old female Hospital Course Hospital Course: We had a long discussion about smoking and she seemed very motivated to quit and was interested in community resources to help. She responded very well to steroids, bronchodilators, and supplemental O2. She initially required oxygen support by nasal cannula but was able to be transitioned off of this for the time she was discharged. She will complete a short burst of steroids at home. She was given a prescription for a new nebulizer because she said hers was very old and she can no longer get replacement parts for it. She said that she had medication to put into the nebulizer. Her examination labs were reassuring and she was discharged home today condition. Physical Exam Vital Signs: Temp Pulse Resp BP Pulse Ox 98.9 F 102 H 18 124/73 97 02/01/18 14:16 02/01/18 14:16 02/01/18 14:16 02/01/18 10:47 02/01/18 14:16 Intake & Output 01/31/18 02/01/18 02/02/18 06:59 06:59 06:59 Intake Total 1941 1260 575 Balance 1941 1260 575 Weight 105.8 kg 103.9 kg Results Laboratory Results: 01/31/18 04:23 01/31/18 04:23 Impressions: Chest X-Ray 01/30/18 02:46 IMPRESSION: 1. No acute pulmonary process identified. Chest/Abdomen CTA 01/30/18 03:17 IMPRESSION: 1. No pulmonary process identified. 2. In the right hepatic lobe there is 2.0 cm indeterminate hypodense nodule. Follow-up [address] or MRI recommended for complete characterization. This exam was performed according to our departmental dose-optimization program, which includes automated exposure control, adjustment of the mA and/or kV according to patient size and/or use of iterative reconstruction technique. Qualifiers - * PATIENT BEING DISCHARGED WITH ANY OF THE FOLLOWING DIAGNOSIS: No
== END 2018-02-01 15:13 | disposition home or self-care (01) | DRG 203 ==
LOC: ER 02:41 → EH 05:10 → 3W 06:04
PROVIDERS: ADMIT Internal Medicine; ATTEND Internal Medicine
PROC: 5A09457 Assistance with Respiratory Ventilation, 24-96 Consecutive Hours, Continuous Positive Airway Pressure (ICD-10-PCS; principal; 2018-01-30)
PROC: 3E0F73Z Introduction of Anti-inflammatory into Respiratory Tract, Via Natural or Artificial Opening (ICD-10-PCS; 2018-01-30)
DX: J45.31 Mild persistent asthma with (acute) exacerbation (principal); R09.02 Hypoxemia; E66.9 Obesity, unspecified; Z68.34 Body mass index [BMI] 34.0-34.9, adult; I10 Essential (primary) hypertension; F41.9 Anxiety disorder, unspecified; F17.210 Nicotine dependence, cigarettes, uncomplicated; R93.8 Abnormal findings on diagnostic imaging of other specified body structures; Z88.6 Allergy status to analgesic agent; Z79.899 Other long term (current) drug therapy; Z83.6 Family history of other diseases of the respiratory system
CPT/HCPCS: 36415; 71045; 71275; 80048; 80053; 81025; 82803; 84703; 85025; 85027; 93005; 93010; 94640; 94660; 96365; 99291; J1650; J2930; J3475; J7620

== ENCOUNTER 2019-01-01 13:52 | Inpatient (IN) | payer MEDICAID ==
[2019-01-01] MEDS ORDERED: IBUPROFEN 600 MG TABLET PO ONE (14:40)
[2019-01-01] MEDS ORDERED: IPRATROPIUM/ALBUTEROL 0.5-2.5 MG/3 ML AMPUL NEB ONE (14:40)
[2019-01-01] MEDS ORDERED: NORMAL SALINE 1000 ML 1,000 ML IV ONE (14:40)
--- NOTE | 2019-01-01 14:49 | ER Document Report ---
ED Medical Screen (RME) - General Chief Complaint: Shortness Of Breath Stated Complaint: FEVER Time Seen by Provider: 01/01/19 14:36 Primary Care Provider: ANTONINA SIM PA-C [Primary Care Provider] - Follow up as needed Mode of Arrival: Ambulatory Information source: Patient TRAVEL OUTSIDE OF THE [place] IN LAST 30 DAYS: No - HPI Patient complains to provider of: FELIX Notes: 01/01/19 14:47 Patient here with complaints of chest pain and shortness of breath. Patient has a history of COPD and asthma. She is a smoker. States that this all started yesterday with associated fever, body aches and chills. Exam No distress, nontoxic-appearing. Expiratory wheezes throughout. Heart sounds normal. Plan CBC, CMP, CPK, CK-MB, troponin, EKG, chest x-ray, influenza screen, Motrin, normal saline bolus. Patient is mildly tachycardic, temperature was 100, therefore sepsis protocol was not initiated as SIRS criteria has not been met at this time. An initial examination was made on the patient as part of the triage process, and it was determined a more comprehensive evaluation was necessary. Initial labs were ordered and patient was transferred to another provider in the ED who assumed care and finished evaluation and plan. - Related Data Allergies/Adverse Reactions: acetaminophen [From Tylenol] Allergy (Verified 01/24/18 11:07) Past Medical History - Social History Chew tobacco use (# tins/day): No Frequency of alcohol use: None Drug Abuse: None - Past Medical History Cardiac Medical History: Denies: Hx Congestive Heart Failure, Hx Coronary Artery Disease, Hx Heart Attack, Hx Hypertension, Hx Pulmonary Embolism Pulmonary Medical History: Reports: Hx Asthma, Hx Bronchitis, Hx COPD - ACUTE, Hx Pneumonia Neurological Medical History: Reports: Hx Seizures - POSSIBLE - NO MEDS. Denies: Hx Cerebrovascular Accident Renal/ Medical History: Denies: Hx Peritoneal Dialysis Musculoskeltal Medical History: Denies Hx Arthritis - Immunizations Hx Diphtheria, Pertussis, Tetanus Vaccination: Yes History of Influenza Vaccine for 05/2017 - 10/2017 Season: No Physical Exam - Vital signs Vitals: Temp Pulse Resp BP Pulse Ox 100.0 F 117 H 16 132/72 H 94 01/01/19 14:30 01/01/19 14:30 01/01/19 14:30 01/01/19 14:30 01/01/19 14:30 Course - Vital Signs Vital signs: Temp Pulse Resp BP Pulse Ox 100.0 F 117 H 16 132/72 H 94 01/01/19 14:30 01/01/19 14:30 01/01/19 14:30 01/01/19 14:30 01/01/19 14:30 Doctor's Discharge - Discharge Referrals: ANTONINA SIM PA-C [Primary Care Provider] - Follow up as needed
--- NOTE | 2019-01-01 14:55 | RADIOLOGY REPORT (SQ) ---
EXAM DESCRIPTION: CHEST 2 VIEWS COMPLETED DATE/TIME: 01/01/2019 2:41 pm REASON FOR STUDY: shortness of breath COMPARISON: None. TECHNIQUE: Frontal and lateral radiographic views of the chest acquired. NUMBER OF VIEWS: Two view. LIMITATIONS: None. FINDINGS: LUNGS AND PLEURA: No opacities, masses or pneumothorax. No pleural effusion. MEDIASTINUM AND HILAR STRUCTURES: No masses or contour abnormalities. HEART AND VASCULAR STRUCTURES: Heart normal size. No evidence for failure. BONES: No acute findings. HARDWARE: None in the chest. OTHER: No other significant finding. IMPRESSION: NO SIGNIFICANT RADIOGRAPHIC FINDING IN THE CHEST. TECHNICAL DOCUMENTATION: JOB ID: [id number] [employer]- All Rights Reserved Reading location - IP/workstation name: [email or web address]
[2019-01-01] MEDS ORDERED: METHYLPREDNISOLONE INJ 125 MG/2 ML SDV IV ONE (15:47)
[2019-01-01] MEDS ORDERED: AZITHROMYCIN INJ 500 MG VIAL IV ONE (15:48)
[2019-01-01] MEDS ORDERED: CEFTRIAXONE RTU 1 GM/D5W 50 ML IV ONE (15:48)
--- NOTE | 2019-01-01 15:51 | ER Document Report ---
ED Respiratory Problem - General Chief Complaint: Shortness Of Breath Stated Complaint: FEVER Time Seen by Provider: 01/01/19 14:36 Primary Care Provider: ANTONINA SIM PA-C [Primary Care Provider] - Follow up as needed Mode of Arrival: Ambulatory Information source: Patient Notes: Patient is a 38-year-old female with past medical history of COPD and asthma who presents today with a cough, congestion, and fever starting around 2 days ago. She states whitish phlegm with little "specks of blood". She states some anterior chest pain only when coughing. She states nausea and vomiting x1. She denies any abdominal pain, back pain, dysuria, calf pain or leg swelling. No recent trips or travel. Patient does not wear oxygen at home. She does smoke. Patient has a history of COPD and asthma as a child. Patient denies ever being intubated in the past. She does not remember her last admission. Patient has been taking every 2 hours nebulizers at home. TRAVEL OUTSIDE OF THE [place] IN LAST 30 DAYS: No - Related Data Allergies/Adverse Reactions: acetaminophen [From Tylenol] Allergy (Verified 01/24/18 11:07) Past Medical History - General Information source: Patient - Social History Smoking Status: Current Every Day Smoker Chew tobacco use (# tins/day): No Frequency of alcohol use: None Drug Abuse: None Family History: COPD Patient has suicidal ideation: No Patient has homicidal ideation: No - Past Medical History Cardiac Medical History: Denies: Hx Congestive Heart Failure, Hx Coronary Artery Disease, Hx Heart Attack, Hx Hypertension, Hx Pulmonary Embolism Pulmonary Medical History: Reports: Hx Asthma, Hx Bronchitis, Hx COPD - ACUTE, Hx Pneumonia Neurological Medical History: Reports: Hx Seizures - POSSIBLE - NO MEDS. Denies: Hx Cerebrovascular Accident Renal/ Medical History: Denies: Hx Peritoneal Dialysis Musculoskeletal Medical History: Denies Hx Arthritis - Immunizations Hx Diphtheria, Pertussis, Tetanus Vaccination: Yes Hx Pneumococcal Vaccination: 09/15/17 Review of Systems - Review of Systems Constitutional: denies: Fever EENT: Nose congestion. denies: Eye discharge, Nose discharge Cardiovascular: Chest pain. denies: Palpitations, Heart racing, Dizziness, Lightheaded Respiratory: Cough, Short of breath Gastrointestinal: Vomiting Genitourinary: denies: Dysuria Musculoskeletal: denies: Leg swelling Skin: Other - no hives. denies: Rash Neurological/Psychological: Other - no slurred speech -: Yes All other systems reviewed and negative Physical Exam - Vital signs Vitals: Temp Pulse Resp BP Pulse Ox 100.0 F 117 H 16 132/72 H 94 01/01/19 14:30 01/01/19 14:30 01/01/19 14:30 01/01/19 14:30 01/01/19 14:30 Notes: Reviewed vital signs and nursing note as charted by RN. CONSTITUTIONAL: Alert and oriented and responds appropriately to questions. Well-appearing; well-nourished HEAD: Normocephalic; atraumatic EYES: PERRL; Conjunctivae clear, sclerae non-icteric ENT: Normal nose; no rhinorrhea; moist mucous membranes; pharynx without lesions noted NECK: Supple without meningismus; non-tender; no cervical lymphadenopathy, no masses CARD: Regular rate and rhythm; no murmurs; symmetric distal pulses RESP: Normal chest excursion without splinting or tachypnea; breath sounds clear and equal bilaterally; bilateral end expiratory wheezing without rhonchi or rales appreciated ABD/GI: Normal bowel sounds; non-distended; soft, non-tender BACK: The back appears normal and is non-tender to palpation EXT: Normal ROM in all joints; non-tender to palpation; no edema SKIN: No acute lesions noted NEURO: CN 2-12 intact; 5/5 bilateral upper and lower extremity strength with sensation intact to light touch PSYCH: The patient's mood and manner are appropriate. Grooming and personal hygiene are appropriate. Course - Re-evaluation Re-evalutation: 01/01/19 15:50 Given the history and physical examination, we will obtain a repeat duo nebulizers as well as obtain an ABG, x-ray of the chest, blood cultures, lactic acid level, and reassess. Given the temperature as recorded, COPD, wheezing on auscultation bilaterally, I do believe pulmonary embolism to be unlikely. EKG shows a heart rate of 111, sinus tachycardia, normal axis, no ST elevation or depression 01/01/19 17:23 Labs and troponin as recorded. ABG has been drawn and is pending. Wheezing has improved. Patient is satting around 90 to 93% on 2 L. She denies any pain currently. Antipyretics have been provided. She is currently chest pain-free. Despite an x-ray showing no obvious pneumonia, I will provide a gram of Rocephin and azithromycin in addition to the magnesium and Solu-Medrol I have provided. Patient will be admitted to the inpatient service. - Vital Signs Vital signs: Temp Pulse Resp BP Pulse Ox 98.0 F 117 H 23 H 104/69 93 01/01/19 16:45 01/01/19 14:30 01/01/19 16:44 01/01/19 16:44 01/01/19 16:44 - Laboratory Result Diagrams: 01/01/19 16:00 01/01/19 16:00 Laboratory results interpreted by me: 01/01/19 01/01/19 16:00 16:00 RDW 14.1 H Plt Count 120 L Seg Neutrophils % 84.0 H Lymphocytes % 8.7 L Absolute Lymphocytes 0.4 L Sodium 135.9 L BUN 6 L Critical Care Note - Critical Care Note Total time excluding time spent on procedures (mins): 35 Discharge - Discharge Clinical Impression: Cough, Wheezing, Hypoxia Fever Qualifiers: Fever type: unspecified Qualified Code(s): R50.9 - Fever, unspecified Condition: Fair Disposition: ADMITTED INPATIENT Admitting Provider: Rita (Hospitalist) Unit Admitted: Telemetry Referrals: ANTONINA SIM PA-C [Primary Care Provider] - Follow up as needed
[2019-01-01] MEDS ORDERED: IPRATROPIUM/ALBUTEROL 0.5-2.5 MG/3 ML AMPUL NEB SCH (16:00)
[2019-01-01 16:15] LABS: ABSOLUTE LYMPHOCYTES (AUTO) 0.4 10^3/uL (0.5-4.7); ABSOLUTE MONOCYTES (AUTO) 0.3 10^3/uL (0.1-1.4); ABSOLUTE NEUT (AUTO) 3.8 10^3/uL (1.7-8.2); BASOPHILS % (AUTO) 0.4 % (0-2); EOSINOPHILS % (AUTO) 0.4 % (0-6); HEMATOCRIT 39.8 % (36.0-47.0); HEMOGLOBIN 13.5 g/dL (12.0-15.5); LYMPHOCYTES % (AUTO) 8.7 % (13-45); MEAN CORPUSCULAR HEMOGLOBIN 31.5 pg (27.0-33.4); MEAN CORPUSCULAR HGB CONC 33.9 g/dL (32.0-36.0); MEAN CORPUSCULAR VOLUME 93 fl (80-97); MONOCYTES % (AUTO) 6.5 % (3-13); PLATELET COUNT 120 10^3/uL (150-450); RED BLOOD COUNT 4.28 10^6/uL (3.72-5.28); RED CELL DISTRIBUTION WIDTH 14.1 % (11.5-14.0); TOTAL CELLS COUNTED % (AUTO) 100 %; WHITE BLOOD COUNT 4.6 10^3/uL (4.0-10.5)
[2019-01-01 16:31] LABS: INTERNATIONAL RATION (INR) 0.95; PROTHROMBIN TIME 13.2 SEC (11.4-15.4)
[2019-01-01 16:33] LABS: BLOOD UREA NITROGEN 6 mg/dL (7-20); CALCIUM 9.3 mg/dL (8.4-10.2); CARBON DIOXIDE 25 mmol/L (22-30); CHLORIDE 100 mmol/L (98-107); GLUCOSE 93 mg/dL (75-110); POTASSIUM 3.6 mmol/L (3.6-5.0); SODIUM 135.9 mmol/L (137-145)
[2019-01-01] MEDS: MAGNESIUM SULFATE/D5W 1 GM/100 ML RTUPB IV SCH ×2 (16:33→17:02)
[2019-01-01 16:34] LABS: ALANINE AMINOTRANSFERASE 27 U/L (9-52); ALKALINE PHOSPHATASE 71 U/L (38-126); ANION GAP 11 (5-19); ASPARTATE AMINO TRANSFERASE 21 U/L (14-36); BILIRUBIN,DIRECT 0.2 mg/dL (0.0-0.4); BILIRUBIN,TOTAL 0.8 mg/dL (0.2-1.3); CREATINE KINASE 84 U/L (30-135); TOTAL PROTEIN 7.1 g/dL (6.3-8.2)
[2019-01-01 16:45] LABS: CREATINE KINASE MB 0.47 ng/mL (<4.55)
[2019-01-01 16:51] LABS: TROPONIN I < 0.012 ng/mL
[2019-01-01 17:20] LABS: ARTERIAL BLOOD BASE EXCESS 0.3 mmol/L; ARTERIAL BLOOD HCO3 24.8 mmol/L (20-24); ARTERIAL BLOOD O2 SATURATION 56.7 % (94-98); ARTERIAL BLOOD PCO2 39.9 mmHg (35-45); ARTERIAL BLOOD PH 7.41 (7.35-7.45); ARTERIAL BLOOD TOTAL CO2 26.1 mmol/L (21-25)
[2019-01-01 17:23] LABS: ARTERIAL BLOOD FIO2 2; ARTERIAL BLOOD PO2 29.4 mmHg (80-100)
[2019-01-01] MEDS ORDERED: TEMAZEPAM 7.5 MG CAPSULE PO PRN (19:08)
[2019-01-01] MEDS ORDERED: ONDANSETRON 4 MG TAB.RAPDIS PO PRN (19:08)
[2019-01-01] MEDS ORDERED: MAG HYDROX/AL HYDROX/SIMETH SUSP 30 ML UDCUP PO PRN (19:08)
[2019-01-01] MEDS ORDERED: DEXTROSE 5%-NORMAL SALINE 1,000 ML IV PRN (19:08)
[2019-01-01] MEDS ORDERED: MORPHINE SULFATE 10 MG/ML INJ IV PRN (19:12)
[2019-01-01 19:13] LABS: APPEARANCE,URINE CLEAR; BILIRUBIN,URINE NEGATIVE (NEGATIVE); COLOR,URINE COLORLESS; GLUCOSE, URINE NEGATIVE (NEGATIVE); KETONES,URINE NEGATIVE (NEGATIVE); LEUKOCYTE ESTERASE,URINE NEGATIVE (NEGATIVE); NITRITE,URINE NEGATIVE (NEGATIVE); PROTEIN,URINE NEGATIVE (NEGATIVE); URINE SPECIFIC GRAVITY 1.001; UROBILINOGEN,URINE NEGATIVE mg/dL (<2.0)
--- NOTE | 2019-01-01 19:23 | PDOC H&P ---
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 Patient started wheezing about a week ago, stating that her son had upper respiratory infection and he was taking care of him, with fever chills nausea vomiting for the last 2 days. Has history of asthma and COPD on home oxygen, takes albuterol, inhaled steroids. Not have a PCP and was scheduled to see a civil engineering design draftsperson however has not been able to. Denies any abdominal pain, chest pain, back pain, dysuria, calf pain or leg swelling, travel, immobilization, recent surgery, numbness, weakness, tingling, diarrhea, constipation, dysuria, hematuria, urgency, hesitancy, urea, polydipsia, excessive weight gain, fatigue. Past Medical History Cardiac Medical History: Denies: Congestive Heart Failure, Coronary Artery Disease, Myocardial Infarction, Hypertension, Pulmonary Embolism Pulmonary Medical History: Reports: Asthma, Bronchitis, Chronic Obstructive Pulmonary Disease (COPD) - ACUTE, Pneumonia Neurological Medical History: Reports: Seizures - POSSIBLE - NO MEDS Musculoskeltal Medical History: Denies: Arthritis Hematology: Denies: Anemia Social History Smoking Status: Current Every Day Smoker Frequency of Alcohol Use: None Hx Recreational Drug Use: No Drugs: None Hx Prescription Drug Abuse: No Family History Family History: COPD Parental Family History Reviewed: Yes Children Family History Reviewed: Yes Sibling(s) Family History Reviewed.: Yes Medication/Allergy Allergies/Adverse Reactions: acetaminophen [From Tylenol] Allergy (Verified 01/24/18 11:07) Review of Systems Review of Systems: as per hpi Physical Exam Vital Signs: Temp Pulse Resp BP Pulse Ox 98.0 F 117 H 31 H 119/74 90 L 01/01/19 16:45 01/01/19 14:30 01/01/19 17:31 01/01/19 17:31 01/01/19 17:31 Intake & Output 12/31/18 01/01/19 01/02/19 06:59 06:59 06:59 Intake Total 1200 Balance 1200 Weight 114.305 kg General appearance: PRESENT: mild distress, obese Head exam: PRESENT: atraumatic, normocephalic Neck exam: ABSENT: carotid bruit, JVD, lymphadenopathy, thyromegaly Respiratory exam: PRESENT: clear to auscultation cooper, wheezes. ABSENT: rales, rhonchi Cardiovascular exam: PRESENT: RRR. ABSENT: diastolic murmur, rubs, systolic murmur GI/Abdominal exam: PRESENT: normal bowel sounds, soft. ABSENT: distended, guarding, mass, organolmegaly, rebound, tenderness Neurological exam: PRESENT: alert, awake, oriented to person, oriented to place, oriented to time, oriented to situation, CN II-XII grossly intact. ABSENT: motor sensory deficit Skin exam: PRESENT: dry, intact, warm. ABSENT: cyanosis, rash Results Laboratory Results: 01/01/19 16:00 01/01/19 16:00 01/01/19 01/01/19 01/01/19 16:00 16:00 16:00 WBC 4.6 RBC 4.28 Hgb 13.5 Hct 39.8 MCV 93 MCH 31.5 MCHC 33.9 RDW 14.1 H Plt Count 120 L Seg Neutrophils % 84.0 H Lymphocytes % 8.7 L Monocytes % 6.5 Eosinophils % 0.4 Basophils % 0.4 Absolute Neutrophils 3.8 Absolute Lymphocytes 0.4 L Absolute Monocytes 0.3 Absolute Eosinophils 0.0 Absolute Basophils 0.0 Carbonic Acid 1.20 HCO3/H2CO3 Ratio 20:1 ABG pH 7.41 ABG pCO2 39.9 ABG pO2 29.4 L* ABG HCO3 24.8 H ABG O2 Saturation 56.7 L ABG Base Excess 0.3 FiO2 2 Sodium 135.9 L Potassium 3.6 Chloride 100 Carbon Dioxide 25 Anion Gap 11 BUN 6 L Creatinine 0.65 Est GFR ( Amer) > 60 Est GFR (Non-Af Amer) > 60 Glucose 93 Lactic Acid Calcium 9.3 Total Bilirubin 0.8 AST 21 ALT 27 Alkaline Phosphatase 71 Total Protein 7.1 Albumin 4.0 Urine Color Urine Appearance Urine pH Ur Specific [place] Urine Protein Urine Glucose (UA) Urine Ketones Urine Blood Urine Nitrite Ur Leukocyte Esterase Urine RBC (Auto) 01/01/19 01/01/19 16:55 18:45 WBC RBC Hgb Hct MCV MCH MCHC RDW Plt Count Seg Neutrophils % Lymphocytes % Monocytes % Eosinophils % Basophils % Absolute Neutrophils Absolute Lymphocytes Absolute Monocytes Absolute Eosinophils Absolute Basophils Carbonic Acid HCO3/H2CO3 Ratio ABG pH ABG pCO2 ABG pO2 ABG HCO3 ABG O2 Saturation ABG Base Excess FiO2 Sodium Potassium Chloride Carbon Dioxide Anion Gap BUN Creatinine Est GFR ( Amer) Est GFR (Non-Af Amer) Glucose Lactic Acid 0.9 Calcium Total Bilirubin AST ALT Alkaline Phosphatase Total Protein Albumin Urine Color COLORLESS Urine Appearance CLEAR Urine pH 5.0 Ur Specific [place] 1.001 Urine Protein NEGATIVE Urine Glucose (UA) NEGATIVE Urine Ketones NEGATIVE Urine Blood SMALL H Urine Nitrite NEGATIVE Ur Leukocyte Esterase NEGATIVE Urine RBC (Auto) 0 01/01/19 01/01/19 16:00 16:00 Creatine Kinase 84 CK-MB (CK-2) 0.47 Troponin I < 0.012 Impressions: Chest X-Ray 01/01/19 00:00 IMPRESSION: NO SIGNIFICANT RADIOGRAPHIC FINDING IN THE CHEST. Assessment and Plan - Diagnosis (1) Acute exacerbation of COPD with asthma Is this a current diagnosis for this admission?: Yes Plan: Acute respiratory infection. Nebs, supplemental oxygen, empiric IV antibiotics, IV steroids, BiPAP. outpatient pulmonology and PCP follow-up. (2) Acute and chronic respiratory failure with hypoxia Is this a current diagnosis for this admission?: Yes Plan: Due to problem #1. (3) Current every day smoker Is this a current diagnosis for this admission?: No Plan: Strongly advised on quitting. NicoDerm patch. (4) Pneumonia Is this a current diagnosis for this admission?: Yes Plan: Likely community acquired including gram-positives Empiric IV antibiotics, sputum culture, blood culture, supplemental oxygen. (5) Obesity (BMI 35.0-39.9 without comorbidity) Is this a current diagnosis for this admission?: No Plan: Diet and lifestyle modification. (6) Nausea & vomiting Is this a current diagnosis for this admission?: Yes Plan: Likely gastroenteritis. Supportive measures. Antiemetics, IV fluids, monitor volume status, monitor electrolytes, replace as needed.
[2019-01-01] MEDS: NICOTINE 14 MG/24 HR PATCH.TD24 TD PRN (19:43)
--- NOTE | 2019-01-01 21:04 | RADIOLOGY REPORT (SQ) ---
CT CHEST ANGIOGRAPHY WITHOUT THEN WITH IV CONTRAST HISTORY: Shortness of breath. COMPARISON: 01/30/2018 TECHNIQUE: CT angiogram of the chest with IV contrast. 3-D MIP images were obtained in coronal and sagittal reconstructions. This exam was performed according to our departmental dose-optimization program, which includes automated exposure control, adjustment of the mA and/or kV according to patient size and/or use of iterative reconstruction technique. FINDINGS: No filling defects are identified in the pulmonary trunk, main left and right pulmonary arteries, or the segmental branches. The thyroid gland is normal. No mediastinal or hilar adenopathy. The heart size is normal without pericardial effusion. The thoracic aorta is normal caliber. No consolidation, pleural effusion, or pneumothorax is identified. The visualized upper abdomen demonstrates no acute findings. No acute osseous findings are seen. IMPRESSION: No acute pulmonary embolism.
[2019-01-01] MEDS: IPRATROPIUM/ALBUTEROL 0.5-2.5 MG/3 ML AMPUL NEB SCH (21:22)
[2019-01-01] MEDS: METHYLPREDNISOLONE INJ 125 MG/2 ML SDV IV SCH (22:20)
[2019-01-01] MEDS: PROMETHAZINE HCL INJ 25 MG/1 ML VIAL IV PRN (22:21)
[2019-01-02] MEDS: KETOROLAC TROMETHAMINE INJ/PF 30 MG/1 ML SDV IV SCH ×3 (00:08→12:11)
[2019-01-02] MEDS: PANTOPRAZOLE SODIUM 40 MG TABLET.DR PO SCH ×2 (05:12→17:19)
[2019-01-02] MEDS: METHYLPREDNISOLONE INJ 125 MG/2 ML SDV IV SCH ×3 (05:13→21:45)
[2019-01-02 07:08] LABS: ABSOLUTE LYMPHOCYTES (AUTO) 0.5 10^3/uL (0.5-4.7); ABSOLUTE MONOCYTES (AUTO) 0.1 10^3/uL (0.1-1.4); ABSOLUTE NEUT (AUTO) 4.7 10^3/uL (1.7-8.2); BASOPHILS % (AUTO) 0.2 % (0-2); HEMATOCRIT 40.7 % (36.0-47.0); HEMOGLOBIN 13.7 g/dL (12.0-15.5); LYMPHOCYTES % (AUTO) 9.6 % (13-45); MEAN CORPUSCULAR HEMOGLOBIN 31.7 pg (27.0-33.4); MEAN CORPUSCULAR HGB CONC 33.8 g/dL (32.0-36.0); MEAN CORPUSCULAR VOLUME 94 fl (80-97); MONOCYTES % (AUTO) 1.5 % (3-13); PLATELET COUNT 121 10^3/uL (150-450); RED BLOOD COUNT 4.34 10^6/uL (3.72-5.28); RED CELL DISTRIBUTION WIDTH 14.1 % (11.5-14.0); SEGMENTED NEUTROPHILS % (AUTO) 88.7 % (42-78); TOTAL CELLS COUNTED % (AUTO) 100 %; WHITE BLOOD COUNT 5.3 10^3/uL (4.0-10.5)
[2019-01-02 07:21] LABS: INTERNATIONAL RATION (INR) 0.94
[2019-01-02 07:35] LABS: ANION GAP 11 (5-19); BLOOD UREA NITROGEN 9 mg/dL (7-20); CALCIUM 9.5 mg/dL (8.4-10.2); CARBON DIOXIDE 24 mmol/L (22-30); CHLORIDE 107 mmol/L (98-107); GLUCOSE 136 mg/dL (75-110); LIPASE 57.5 U/L (23-300); POTASSIUM 4.4 mmol/L (3.6-5.0); SODIUM 142.1 mmol/L (137-145)
[2019-01-02] MEDS: IPRATROPIUM/ALBUTEROL 0.5-2.5 MG/3 ML AMPUL NEB SCH ×4 (08:29→21:32)
[2019-01-02] MEDS: ENOXAPARIN SODIUM INJ 40 MG/0.4 ML DISP.SYRIN SUBCUT SCH (09:46)
[2019-01-02] MEDS: MORPHINE SULFATE 10 MG/ML INJ IV PRN (09:53)
[2019-01-02] MEDS: NICOTINE 14 MG/24 HR PATCH.TD24 TD PRN (09:53)
[2019-01-02] MEDS: DOCUSATE SODIUM 100 MG CAPSULE PO SCH (09:53)
[2019-01-02] MEDS ORDERED: CEFTRIAXONE 1 GM/D5W RTU 1 GM/50 ML RTUPB IV SCH (10:00)
[2019-01-02] MEDS: AZITHROMYCIN 500 MG in DEXTROSE 5%-WATER 250 ML IV SCH (12:25)
[2019-01-02] MEDS ORDERED: ALBUTEROL SULFATE 0.083% NEB 2.5 MG/3 ML AMPUL NEB PRN (15:22)
--- NOTE | 2019-01-02 15:34 | PDOC PROGRESS REPORT ---
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 Patient started wheezing about a week ago, stating that her son had upper respiratory infection and he was taking care of him, with fever chills nausea vomiting for the last 2 days. Has history of asthma and COPD on home oxygen, takes albuterol, inhaled steroids. Not have a PCP and was scheduled to see a career coach however has not been able to. Denies any abdominal pain, chest pain, back pain, dysuria, calf pain or leg swelling, travel, immobilization, recent surgery, numbness, weakness, tingling, diarrhea, constipation, dysuria, hematuria, urgency, hesitancy, urea, polydipsia, excessive weight gain, fatigue. 01/02/2019: Patient still on significant amount of oxygen via nasal cannula. She is currently on 6 L. Although she feels better and she feels that she is improving. She still has significant wheezing. She is far from her baseline. Reason For Visit: ASTHMA/COPD EXCERBATION, N/V, FEVER Physical Exam Vital Signs: Temp Pulse Resp BP Pulse Ox 98.3 F 105 H 20 101/57 L 92 01/02/19 03:36 01/02/19 14:00 01/02/19 12:21 01/02/19 03:36 01/02/19 12:21 Intake & Output 01/01/19 01/02/19 01/03/19 06:59 06:59 06:59 Intake Total 1200 Balance 1200 Weight 242 lb 8.136 oz Exam: Patient is no acute distress Alert oriented to time place person No anxiety or depression Head atraumatic normocephalic Pupils are equal reactive Neck is supple and trachea is central no lymphadenopathy No pharyngeal erythema or exudates Regular rate and rhythm Lungs: Bilateral wheezing Abdomen nontender nondistended Neurological exam unremarkable No joint swelling or effusion chronic lower back pain and tenderness Both legs are edematous and erythematous and tender No suicidal homicidal ideation Results Laboratory Results: 01/02/19 06:33 01/02/19 06:33 01/01/19 01/01/19 01/01/19 16:00 16:00 16:00 WBC 4.6 RBC 4.28 Hgb 13.5 Hct 39.8 MCV 93 MCH 31.5 MCHC 33.9 RDW 14.1 H Plt Count 120 L Seg Neutrophils % 84.0 H Lymphocytes % 8.7 L Monocytes % 6.5 Eosinophils % 0.4 Basophils % 0.4 Absolute Neutrophils 3.8 Absolute Lymphocytes 0.4 L Absolute Monocytes 0.3 Absolute Eosinophils 0.0 Absolute Basophils 0.0 Carbonic Acid 1.20 HCO3/H2CO3 Ratio 20:1 ABG pH 7.41 ABG pCO2 39.9 ABG pO2 29.4 L* ABG HCO3 24.8 H ABG O2 Saturation 56.7 L ABG Base Excess 0.3 FiO2 2 Sodium 135.9 L Potassium 3.6 Chloride 100 Carbon Dioxide 25 Anion Gap 11 BUN 6 L Creatinine 0.65 Est GFR ( Amer) > 60 Est GFR (Non-Af Amer) > 60 Glucose 93 Lactic Acid Calcium 9.3 Magnesium Total Bilirubin 0.8 AST 21 ALT 27 Alkaline Phosphatase 71 Total Protein 7.1 Albumin 4.0 Lipase TSH Urine Color Urine Appearance Urine pH Ur Specific [place] Urine Protein Urine Glucose (UA) Urine Ketones Urine Blood Urine Nitrite Ur Leukocyte Esterase Urine RBC (Auto) 01/01/19 01/01/19 01/02/19 16:55 18:45 06:33 WBC 5.3 RBC 4.34 Hgb 13.7 Hct 40.7 MCV 94 MCH 31.7 MCHC 33.8 RDW 14.1 H Plt Count 121 L Seg Neutrophils % 88.7 H Lymphocytes % 9.6 L Monocytes % 1.5 L Eosinophils % 0.0 Basophils % 0.2 Absolute Neutrophils 4.7 Absolute Lymphocytes 0.5 Absolute Monocytes 0.1 Absolute Eosinophils 0.0 Absolute Basophils 0.0 Carbonic Acid HCO3/H2CO3 Ratio ABG pH ABG pCO2 ABG pO2 ABG HCO3 ABG O2 Saturation ABG Base Excess FiO2 Sodium Potassium Chloride Carbon Dioxide Anion Gap BUN Creatinine Est GFR ( Amer) Est GFR (Non-Af Amer) Glucose Lactic Acid 0.9 Calcium Magnesium Total Bilirubin AST ALT Alkaline Phosphatase Total Protein Albumin Lipase TSH Urine Color COLORLESS Urine Appearance CLEAR Urine pH 5.0 Ur Specific [place] 1.001 Urine Protein NEGATIVE Urine Glucose (UA) NEGATIVE Urine Ketones NEGATIVE Urine Blood SMALL H Urine Nitrite NEGATIVE Ur Leukocyte Esterase NEGATIVE Urine RBC (Auto) 0 01/02/19 01/02/19 06:33 06:33 WBC RBC Hgb Hct MCV MCH MCHC RDW Plt Count Seg Neutrophils % Lymphocytes % Monocytes % Eosinophils % Basophils % Absolute Neutrophils Absolute Lymphocytes Absolute Monocytes Absolute Eosinophils Absolute Basophils Carbonic Acid HCO3/H2CO3 Ratio ABG pH ABG pCO2 ABG pO2 ABG HCO3 ABG O2 Saturation ABG Base Excess FiO2 Sodium 142.1 Potassium 4.4 Chloride 107 Carbon Dioxide 24 Anion Gap 11 BUN 9 Creatinine 0.55 Est GFR ( Amer) > 60 Est GFR (Non-Af Amer) > 60 Glucose 136 H Lactic Acid Calcium 9.5 Magnesium 2.5 H Total Bilirubin AST ALT Alkaline Phosphatase Total Protein Albumin Lipase 57.5 TSH 0.18 L Urine Color Urine Appearance Urine pH Ur Specific [place] Urine Protein Urine Glucose (UA) Urine Ketones Urine Blood Urine Nitrite Ur Leukocyte Esterase Urine RBC (Auto) 01/01/19 01/01/19 16:00 16:00 Creatine Kinase 84 CK-MB (CK-2) 0.47 Troponin I < 0.012 Impressions: Chest X-Ray 01/01/19 00:00 IMPRESSION: NO SIGNIFICANT RADIOGRAPHIC FINDING IN THE CHEST. Chest/Abdomen CTA 01/01/19 00:00 IMPRESSION: No acute pulmonary embolism. Assessment and Plan - Diagnosis (1) Acute and chronic respiratory failure with hypoxia Is this a current diagnosis for this admission?: Yes Plan: 01/02/2019: Continue oxygen as needed and wean as tolerated (2) Acute exacerbation of COPD with asthma Is this a current diagnosis for this admission?: Yes Plan: 01/02/2019: Continue Nebs, supplemental oxygen, empiric IV antibiotics, IV steroids, BiPAP. outpatient pulmonology and PCP follow-up. (3) Nausea & vomiting Is this a current diagnosis for this admission?: Yes Plan: 01/02/2019: Supportive measures. Antiemetics, IV fluids, monitor volume status, monitor electrolytes, replace as needed. (4) Current every day smoker Is this a current diagnosis for this admission?: No Plan: 01/02/2017: Patient was counseled. Continue NicoDerm patch. (5) Obesity (BMI 35.0-39.9 without comorbidity) Is this a current diagnosis for this admission?: No Plan: 01/02/2019: Recommend diet and lifestyle modification.
[2019-01-02] MEDS: KETOROLAC TROMETHAMINE INJ/PF 30 MG/1 ML SDV IV PRN ×2 (16:45→21:46)
[2019-01-02] MEDS: CEFTRIAXONE SODIUM 1,000 MG in DEXTROSE 5%-WATER 50 ML IV SCH (17:19)
[2019-01-03] MEDS: NICOTINE 14 MG/24 HR PATCH.TD24 TD PRN (00:30)
[2019-01-03] MEDS: PANTOPRAZOLE SODIUM 40 MG TABLET.DR PO SCH ×2 (05:30→17:18)
[2019-01-03] MEDS: METHYLPREDNISOLONE INJ 125 MG/2 ML SDV IV SCH ×2 (05:30→13:01)
[2019-01-03 06:45] LABS: ABSOLUTE LYMPHOCYTES (AUTO) 1.2 10^3/uL (0.5-4.7); ABSOLUTE MONOCYTES (AUTO) 0.4 10^3/uL (0.1-1.4); ABSOLUTE NEUT (AUTO) 12.9 10^3/uL (1.7-8.2); BASOPHILS % (AUTO) 0.1 % (0-2); HEMATOCRIT 37.8 % (36.0-47.0); HEMOGLOBIN 12.6 g/dL (12.0-15.5); LYMPHOCYTES % (AUTO) 8.1 % (13-45); MEAN CORPUSCULAR HEMOGLOBIN 31.6 pg (27.0-33.4); MEAN CORPUSCULAR HGB CONC 33.4 g/dL (32.0-36.0); MEAN CORPUSCULAR VOLUME 95 fl (80-97); MONOCYTES % (AUTO) 2.7 % (3-13); PLATELET COUNT 150 10^3/uL (150-450); RED CELL DISTRIBUTION WIDTH 14.3 % (11.5-14.0); SEGMENTED NEUTROPHILS % (AUTO) 89.1 % (42-78); TOTAL CELLS COUNTED % (AUTO) 100 %
[2019-01-03 06:46] LABS: WHITE BLOOD COUNT 14.5 10^3/uL (4.0-10.5)
[2019-01-03 07:05] LABS: ANION GAP 10 (5-19); BLOOD UREA NITROGEN 17 mg/dL (7-20); CALCIUM 8.7 mg/dL (8.4-10.2); CARBON DIOXIDE 22 mmol/L (22-30); CHLORIDE 108 mmol/L (98-107); GLUCOSE 133 mg/dL (75-110); POTASSIUM 4.5 mmol/L (3.6-5.0); SODIUM 139.7 mmol/L (137-145)
[2019-01-03] MEDS: IPRATROPIUM/ALBUTEROL 0.5-2.5 MG/3 ML AMPUL NEB SCH ×4 (08:02→20:50)
[2019-01-03] MEDS: ENOXAPARIN SODIUM INJ 40 MG/0.4 ML DISP.SYRIN SUBCUT SCH (09:38)
[2019-01-03] MEDS: DOCUSATE SODIUM 100 MG CAPSULE PO SCH (09:38)
--- NOTE | 2019-01-03 10:22 | EKG REPORT ---
SEVERITY:- OTHERWISE NORMAL ECG - SINUS TACHYCARDIA : Confirmed by: Clau Major 03-Jan-2019 10:21:50
[2019-01-03] MEDS: AZITHROMYCIN 500 MG in DEXTROSE 5%-WATER 250 ML IV SCH (11:04)
--- NOTE | 2019-01-03 14:12 | PDOC PROGRESS REPORT ---
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 Patient started wheezing about a week ago, stating that her son had upper respiratory infection and he was taking care of him, with fever chills nausea vomiting for the last 2 days. Has history of asthma and COPD on home oxygen, takes albuterol, inhaled steroids. Not have a PCP and was scheduled to see a international editorial producer however has not been able to. Denies any abdominal pain, chest pain, back pain, dysuria, calf pain or leg swelling, travel, immobilization, recent surgery, numbness, weakness, tingling, diarrhea, constipation, dysuria, hematuria, urgency, hesitancy, urea, polydipsia, excessive weight gain, fatigue. 01/02/2019: Patient still on significant amount of oxygen via nasal cannula. She is currently on 6 L. Although she feels better and she feels that she is improving. She still has significant wheezing. She is far from her baseline. 01/03/2019: Oxygen weaned down to 4 L now. She continues to feel better and improved. White count increased today likely due to steroids. She is afebrile Physical examination: Patient is no acute distress Alert oriented to time place person No anxiety or depression Head atraumatic normocephalic Pupils are equal reactive Neck is supple and trachea is central no lymphadenopathy No pharyngeal erythema or exudates Regular rate and rhythm Lungs: Bilateral wheezing Abdomen nontender nondistended Neurological exam unremarkable No joint swelling or effusion chronic lower back pain and tenderness Both legs are edematous and erythematous and tender No suicidal homicidal ideation Assessment and Plan (1) Acute and chronic respiratory failure with hypoxia 01/02/2019: Continue oxygen as needed and wean as tolerated 01/03/2019: Oxygen requirement decreased to 4 L/min today. (2) Acute exacerbation of COPD with asthma 01/02/2019: Continue Nebs, supplemental oxygen, empiric IV antibiotics, IV steroids, BiPAP. outpatient pulmonology and PCP follow-up. 01/03/2019: Switch to p.o. prednisone today. (3) Nausea & vomiting 01/02/2019: Supportive measures. Antiemetics, IV fluids, monitor volume status, monitor electrolytes, replace as needed. 01/03/2019: Tolerating diet well today. (4) Current every day smoker 01/02/2017: Patient was counseled. Continue NicoDerm patch. (5) Obesity (BMI 35.0-39.9 without comorbidity) 01/02/2019: Recommend diet and lifestyle modification. Reason For Visit: ASTHMA/COPD EXCERBATION, N/V, FEVER Physical Exam Vital Signs: Temp Pulse Resp BP Pulse Ox 98.7 F 90 17 121/74 95 01/03/19 07:26 01/03/19 12:40 01/03/19 12:40 01/03/19 07:26 01/03/19 12:40 Intake & Output 01/02/19 01/03/19 01/04/19 06:59 06:59 06:59 Intake Total 1200 902 250 Balance 1200 902 250 Weight 242 lb 8.136 oz 247 lb 9.266 oz Results Laboratory Results: 01/03/19 05:57 01/03/19 05:57 01/03/19 01/03/19 05:57 05:57 WBC 14.5 H D RBC 4.00 Hgb 12.6 Hct 37.8 MCV 95 MCH 31.6 MCHC 33.4 RDW 14.3 H Plt Count 150 Seg Neutrophils % 89.1 H Lymphocytes % 8.1 L Monocytes % 2.7 L Eosinophils % 0.0 Basophils % 0.1 Absolute Neutrophils 12.9 H Absolute Lymphocytes 1.2 Absolute Monocytes 0.4 Absolute Eosinophils 0.0 Absolute Basophils 0.0 Sodium 139.7 Potassium 4.5 Chloride 108 H Carbon Dioxide 22 Anion Gap 10 BUN 17 Creatinine 0.51 L Est GFR ( Amer) > 60 Est GFR (Non-Af Amer) > 60 Glucose 133 H Calcium 8.7 Magnesium 2.1 01/01/19 01/01/19 16:00 16:00 Creatine Kinase 84 CK-MB (CK-2) 0.47 Troponin I < 0.012 Impressions: Chest X-Ray 01/01/19 00:00 IMPRESSION: NO SIGNIFICANT RADIOGRAPHIC FINDING IN THE CHEST. Chest/Abdomen CTA 01/01/19 00:00 IMPRESSION: No acute pulmonary embolism. Assessment and Plan - Diagnosis (1) Acute and chronic respiratory failure with hypoxia Is this a current diagnosis for this admission?: Yes Plan: 01/02/2019: Continue oxygen as needed and wean as tolerated (2) Acute exacerbation of COPD with asthma Is this a current diagnosis for this admission?: Yes Plan: 01/02/2019: Continue Nebs, supplemental oxygen, empiric IV antibiotics, IV steroids, BiPAP. outpatient pulmonology and PCP follow-up. (3) Nausea & vomiting Is this a current diagnosis for this admission?: Yes Plan: 01/02/2019: Supportive measures. Antiemetics, IV fluids, monitor volume status, monitor electrolytes, replace as needed. (4) Current every day smoker Is this a current diagnosis for this admission?: No Plan: 01/02/2017: Patient was counseled. Continue NicoDerm patch. (5) Obesity (BMI 35.0-39.9 without comorbidity) Is this a current diagnosis for this admission?: No Plan: 01/02/2019: Recommend diet and lifestyle modification.
[2019-01-03] MEDS ORDERED: PREDNISONE 20 MG TABLET PO ONE (15:00)
[2019-01-03] MEDS: CEFTRIAXONE SODIUM 1,000 MG in DEXTROSE 5%-WATER 50 ML IV SCH (17:18)
[2019-01-04] MEDS: PANTOPRAZOLE SODIUM 40 MG TABLET.DR PO SCH ×2 (05:05→17:43)
[2019-01-04 05:32] LABS: HEMATOCRIT 37.3 % (36.0-47.0); HEMOGLOBIN 12.4 g/dL (12.0-15.5); MEAN CORPUSCULAR HEMOGLOBIN 31.5 pg (27.0-33.4); MEAN CORPUSCULAR HGB CONC 33.4 g/dL (32.0-36.0); MEAN CORPUSCULAR VOLUME 94 fl (80-97); PLATELET COUNT 169 10^3/uL (150-450); RED BLOOD COUNT 3.95 10^6/uL (3.72-5.28); WHITE BLOOD COUNT 10.4 10^3/uL (4.0-10.5)
[2019-01-04 05:53] LABS: ANION GAP 10 (5-19); BLOOD UREA NITROGEN 16 mg/dL (7-20); CALCIUM 9.1 mg/dL (8.4-10.2); CARBON DIOXIDE 26 mmol/L (22-30); CHLORIDE 106 mmol/L (98-107); GLUCOSE 97 mg/dL (75-110); POTASSIUM 4.6 mmol/L (3.6-5.0)
[2019-01-04] MEDS: MORPHINE SULFATE 10 MG/ML INJ IV PRN ×4 (07:54→17:39)
[2019-01-04] MEDS: PROMETHAZINE HCL INJ 25 MG/1 ML VIAL IV PRN (08:03)
[2019-01-04] MEDS: IPRATROPIUM/ALBUTEROL 0.5-2.5 MG/3 ML AMPUL NEB SCH ×4 (09:15→21:04)
[2019-01-04] MEDS ORDERED: AZITHROMYCIN 250 MG TABLET PO SCH (10:00)
[2019-01-04] MEDS: DOCUSATE SODIUM 100 MG CAPSULE PO SCH (10:42)
[2019-01-04] MEDS: PREDNISONE 20 MG TABLET PO SCH (10:44)
[2019-01-04] MEDS: NICOTINE 14 MG/24 HR PATCH.TD24 TD PRN (10:45)
[2019-01-04] MEDS: ENOXAPARIN SODIUM INJ 40 MG/0.4 ML DISP.SYRIN SUBCUT SCH (10:45)
--- NOTE | 2019-01-04 13:49 | PDOC PROGRESS REPORT ---
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 Patient started wheezing about a week ago, stating that her son had upper respiratory infection and he was taking care of him, with fever chills nausea vomiting for the last 2 days. Has history of asthma and COPD on home oxygen, takes albuterol, inhaled steroids. Not have a PCP and was scheduled to see a esters and emulsifiers supervisor however has not been able to. Denies any abdominal pain, chest pain, back pain, dysuria, calf pain or leg swelling, travel, immobilization, recent surgery, numbness, weakness, tingling, diarrhea, constipation, dysuria, hematuria, urgency, hesitancy, urea, polydipsia, excessive weight gain, fatigue. 01/02/2019: Patient still on significant amount of oxygen via nasal cannula. She is currently on 6 L. Although she feels better and she feels that she is improving. She still has significant wheezing. She is far from her baseline. 01/03/2019: Oxygen weaned down to 4 L now. She continues to feel better and improved. White count increased today likely due to steroids. She is afebrile 01/04/2019: Patient is being weaned down to 2-3 L of oxygen. She tells me that she feels that she is improving. She is afebrile. White count improved. She is still not at her baseline yet. Physical examination: Patient is no acute distress Alert oriented to time place person No anxiety or depression Head atraumatic normocephalic Pupils are equal reactive Neck is supple and trachea is central no lymphadenopathy No pharyngeal erythema or exudates Regular rate and rhythm Lungs: Bilateral wheezing Abdomen nontender nondistended Neurological exam unremarkable No joint swelling or effusion chronic lower back pain and tenderness Both legs are edematous and erythematous and tender No suicidal homicidal ideation Assessment and Plan (1) Acute and chronic respiratory failure with hypoxia 01/02/2019: Continue oxygen as needed and wean as tolerated 01/03/2019: Oxygen requirement decreased to 4 L/min today. 01/04/2019: Ambulated without oxygen today and her pulse ox was at 93%. She is currently on 2-3 L of oxygen for comfort. Apparently she felt better with oxygen after walking around hallways. (2) Acute exacerbation of COPD with asthma 01/02/2019: Continue Nebs, supplemental oxygen, empiric IV antibiotics, IV steroids, BiPAP. outpatient pulmonology and PCP follow-up. 01/03/2019: Switch to p.o. prednisone today. 01/04/2019: Continue oral prednisone. Switch IV ceftriaxone and IV azithromycin to stress only p.o. azithromycin. (3) Nausea & vomiting 01/02/2019: Supportive measures. Antiemetics, IV fluids, monitor volume status, monitor electrolytes, replace as needed. 01/03/2019: Tolerating diet well today. (4) Current every day smoker 01/02/2017: Patient was counseled. Continue NicoDerm patch. (5) Obesity (BMI 35.0-39.9 without comorbidity) 01/02/2019: Recommend diet and lifestyle modification. Reason For Visit: ASTHMA/COPD EXCERBATION, N/V, FEVER Physical Exam Vital Signs: Temp Pulse Resp BP Pulse Ox 99.0 F 91 16 128/85 H 96 01/04/19 12:00 01/04/19 12:32 01/04/19 12:32 01/04/19 12:00 01/04/19 12:32 Intake & Output 01/03/19 01/04/19 01/05/19 06:59 06:59 06:59 Intake Total 902 3330 Balance 902 3330 Weight 247 lb 9.266 oz 253 lb 4.978 oz Results Laboratory Results: 01/04/19 04:58 01/04/19 04:58 01/04/19 01/04/19 04:58 04:58 WBC 10.4 RBC 3.95 Hgb 12.4 Hct 37.3 MCV 94 MCH 31.5 MCHC 33.4 RDW 14.0 Plt Count 169 Sodium 142.0 Potassium 4.6 Chloride 106 Carbon Dioxide 26 Anion Gap 10 BUN 16 Creatinine 0.55 Est GFR ( Amer) > 60 Est GFR (Non-Af Amer) > 60 Glucose 97 Calcium 9.1 Magnesium 2.2 01/01/19 01/01/19 16:00 16:00 Creatine Kinase 84 CK-MB (CK-2) 0.47 Troponin I < 0.012 Impressions: Chest X-Ray 01/01/19 00:00 IMPRESSION: NO SIGNIFICANT RADIOGRAPHIC FINDING IN THE CHEST. Chest/Abdomen CTA 01/01/19 00:00 IMPRESSION: No acute pulmonary embolism. Assessment and Plan - Diagnosis (1) Acute and chronic respiratory failure with hypoxia Is this a current diagnosis for this admission?: Yes (2) Acute exacerbation of COPD with asthma Is this a current diagnosis for this admission?: Yes (3) Nausea & vomiting Is this a current diagnosis for this admission?: Yes (4) Current every day smoker Is this a current diagnosis for this admission?: No (5) Obesity (BMI 35.0-39.9 without comorbidity) Is this a current diagnosis for this admission?: No
[2019-01-05] MEDS: PANTOPRAZOLE SODIUM 40 MG TABLET.DR PO SCH (05:09)
[2019-01-05] MEDS: MORPHINE SULFATE 10 MG/ML INJ IV PRN ×2 (07:34→11:43)
[2019-01-05] MEDS: IPRATROPIUM/ALBUTEROL 0.5-2.5 MG/3 ML AMPUL NEB SCH ×2 (08:04→11:37)
[2019-01-05] MEDS ORDERED: AZITHROMYCIN 250 MG TABLET PO SCH (10:00)
--- NOTE | 2019-01-05 10:47 | PDOC DISCHARGE SUMMARY ---
General - Admit/Disc Date/PCP Admission Date/Primary Care Provider: 01/01/19 18:42 ANTONINA SIM PA-C Discharge Date: 01/05/19 - Discharge Diagnosis (1) Acute and chronic respiratory failure with hypoxia Is this a current diagnosis for this admission?: Yes (2) Acute exacerbation of COPD with asthma Is this a current diagnosis for this admission?: Yes (3) Nausea & vomiting Is this a current diagnosis for this admission?: Yes (4) Current every day smoker Is this a current diagnosis for this admission?: No (5) Obesity (BMI 35.0-39.9 without comorbidity) Is this a current diagnosis for this admission?: No - Additional Information Discharge Diet: As Tolerated Discharge Activity: Activity As Tolerated Prescriptions: Azithromycin [Zithromax 250 mg Tablet] 250 mg PO DAILY #4 tablet Guaifenesin [Mucinex] 600 mg PO BID #10 tablet.sa Ipratropium/Albuterol Sulfate [Duoneb 3 ml Ampul] 3 ml NEB Q4HP PRN #60 vial.neb PRN Reason: Prednisone [Deltasone 20 mg Tablet] 40 mg PO DAILY #12 tablet Home Medications: Albuterol Sulfate [Proair HFA Inhalation Aerosol 8.5 gm MDI] 1 puff IH Q4HP PRN 01/01/19 Albuterol Sulfate [Ventolin 0.083% Neb 2.5 mg/3 mL Ampul] 2.5 mg NEB Q4HP PRN 01/01/19 Azithromycin [Zithromax 250 mg Tablet] 250 mg PO DAILY #4 tablet 01/05/19 Guaifenesin [Mucinex] 600 mg PO BID #10 tablet.sa 01/05/19 Ipratropium/Albuterol Sulfate [Duoneb 3 ml Ampul] 3 ml NEB Q4HP PRN #60 vial.neb 01/05/19 Nicotine [Nicoderm 14 mg/24 Hr Transdermal Patch] 1 each TD DAILYP PRN patch.[id number] 01/05/19 Prednisone [Deltasone 20 mg Tablet] 40 mg PO DAILY #12 tablet 01/05/19 History of Present Illness History of Present Illness: JAYDEN SIMMONS is a 38 year old female Hospital Course Hospital Course: JAYDEN SIMMONS is a 38 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 Patient started wheezing about a week ago, stating that her son had upper respiratory infection and he was taking care of him, with fever chills nausea vomiting for the last 2 days. Has history of asthma and COPD on home oxygen, takes albuterol, inhaled steroids. Not have a PCP and was scheduled to see a cut off machine unloader however has not been able to. Denies any abdominal pain, chest pain, back pain, dysuria, calf pain or leg swelling, travel, immobilization, recent surgery, numbness, weakness, tingling, diarrhea, constipation, dysuria, hematuria, urgency, hesitancy, urea, polydipsia, excessive weight gain, fatigue. 01/02/2019: Patient still on significant amount of oxygen via nasal cannula. She is currently on 6 L. Although she feels better and she feels that she is improving. She still has significant wheezing. She is far from her baseline. 01/03/2019: Oxygen weaned down to 4 L now. She continues to feel better and improved. White count increased today likely due to steroids. She is afebrile 01/04/2019: Patient is being weaned down to 2-3 L of oxygen. She tells me that she feels that she is improving. She is afebrile. White count improved. She is still not at her baseline yet. Physical examination: Patient is no acute distress Alert oriented to time place person No anxiety or depression Head atraumatic normocephalic Pupils are equal reactive Neck is supple and trachea is central no lymphadenopathy No pharyngeal erythema or exudates Regular rate and rhythm Lungs: Bilateral wheezing, improved Abdomen nontender nondistended Neurological exam unremarkable No joint swelling or effusion chronic lower back pain and tenderness Both legs are edematous and erythematous and tender No suicidal homicidal ideation Assessment and Plan (1) Acute and chronic respiratory failure with hypoxia 01/02/2019: Continue oxygen as needed and wean as tolerated 01/03/2019: Oxygen requirement decreased to 4 L/min today. 01/04/2019: Ambulated without oxygen today and her pulse ox was at 93%. She is c urrently on 2-3 L of oxygen for comfort. Apparently she felt better with oxygen after walking around hallways. (2) Acute exacerbation of COPD with asthma 01/02/2019: Continue Nebs, supplemental oxygen, empiric IV antibiotics, IV steroids, BiPAP. outpatient pulmonology and PCP follow-up. 01/03/2019: Switch to p.o. prednisone today. 01/04/2019: Continue oral prednisone. Switch IV ceftriaxone and IV azithromycin to stress only p.o. azithromycin. (3) Nausea & vomiting 01/02/2019: Supportive measures. Antiemetics, IV fluids, monitor volume status, monitor electrolytes, replace as needed. 01/03/2019: Tolerating diet well today. (4) Current every day smoker 01/02/2017: Patient was counseled. Continue NicoDerm patch. (5) Obesity (BMI 35.0-39.9 without comorbidity) 01/02/2019: Recommend diet and lifestyle modification. Patient significantly improved. She is off oxygen. She is ambulating without d ifficulty. She is tolerating diet. She is afebrile. She wants to go home on oxygen but she does not qualify because she is saturating very well without oxygen. And she looks comfortable with and without oxygen. We will discharge her home and will prescribe her azithromycin to finish course outpatient. We will also prescribe a course of prednisone and as needed Combivent and oral Mucinex. Time spent on discharge 35 minutes. Physical Exam Vital Signs: Temp Pulse Resp BP Pulse Ox 98.8 F 72 16 124/74 92 01/05/19 07:53 01/05/19 08:04 01/05/19 08:04 01/05/19 07:53 01/05/19 08:04 Intake & Output 01/04/19 01/05/19 01/06/19 06:59 06:59 06:59 Intake Total 3330 2212 Balance 3330 2212 Weight 253 lb 4.978 oz 250 lb 10.649 oz Results Laboratory Results: 01/04/19 04:58 01/04/19 04:58 01/01/19 01/01/19 16:00 16:00 Creatine Kinase 84 CK-MB (CK-2) 0.47 Troponin I < 0.012 Impressions: Chest X-Ray 01/01/19 00:00 IMPRESSION: NO SIGNIFICANT RADIOGRAPHIC FINDING IN THE CHEST. Chest/Abdomen CTA 01/01/19 00:00 IMPRESSION: No acute pulmonary embolism. Qualifiers - * PATIENT BEING DISCHARGED WITH ANY OF THE FOLLOWING DIAGNOSIS: No Acute Heart Failure Is this a Heart Failure Patient?: No
[2019-01-05] MEDS: PREDNISONE 20 MG TABLET PO SCH (11:42)
[2019-01-05] MEDS: DOCUSATE SODIUM 100 MG CAPSULE PO SCH (11:42)
[2019-01-05] MEDS: NICOTINE 14 MG/24 HR PATCH.TD24 TD PRN (11:42)
[2019-01-05] MEDS: ENOXAPARIN SODIUM INJ 40 MG/0.4 ML DISP.SYRIN SUBCUT SCH (11:44)
[2019-01-05 14:43] VITALS: BP 128/85
== END 2019-01-05 15:30 | disposition home or self-care (01) | DRG 190 ==
LOC: ER 13:52 → EH 18:42 → 3W 23:26
PROVIDERS: ADMIT Internal Medicine; ATTEND Internal Medicine
PROC: 5A09457 Assistance with Respiratory Ventilation, 24-96 Consecutive Hours, Continuous Positive Airway Pressure (ICD-10-PCS; principal; 2019-01-01)
PROC: 3E0F73Z Introduction of Anti-inflammatory into Respiratory Tract, Via Natural or Artificial Opening (ICD-10-PCS; 2019-01-01)
DX: J44.1 Chronic obstructive pulmonary disease with (acute) exacerbation (principal); J96.21 Acute and chronic respiratory failure with hypoxia; F17.200 Nicotine dependence, unspecified, uncomplicated; E66.9 Obesity, unspecified; Z68.35 Body mass index [BMI] 35.0-35.9, adult; Z79.899 Other long term (current) drug therapy; Z99.81 Dependence on supplemental oxygen; Z88.6 Allergy status to analgesic agent
CPT/HCPCS: 36415; 71046; 71275; 80048; 80053; 81001; 82550; 82553; 82803; 83036; 83605; 83690; 83735; 84443; 84484; 85025; 85027; 85610; 87040; 93005; 93010; 94640; 94660; 96365; 96367; 96368; 96375; 99291; J0456; J0696; J1650; J1885; J2270; J2550; J2930; J3475; J3490; J7030; J7060; J7512; J7620